=== PATIENT | female | born 1945 | race Caucasian/White ===

== ENCOUNTER 2017-04-10 23:18 | Emergency (ER) | payer MEDICARE, OTHER ==
[~2017-04-10] VITALS: Ht 152.4 cm; Wt 113.4 kg
[~2017-04-10 23:18] MED LIST: ATENOLOL25 MG PO; DEMADEX10 MG PO; PRAVACHOL40 MG PO; SPIRIVA18 MCG INH; ULTRAM50 MG PO; VITAMIN D1000 UNIT PO
== END 2017-04-11 01:10 | disposition home or self-care (01) ==
LOC: ED 23:18
DX: J44.9 Chronic obstructive pulmonary disease, unspecified (principal); I10 Essential (primary) hypertension; F17.210 Nicotine dependence, cigarettes, uncomplicated; Z79.899 Other long term (current) drug therapy
CPT/HCPCS: 82803; 99284

== ENCOUNTER 2022-10-02 09:03 | Inpatient (IN) | payer MEDICARE, OTHER ==
[~2022-10-02] VITALS: Ht 152.4 cm; Wt 99.0 kg
[~2022-10-02 09:03] MED LIST changes: +BUPROPION XL300 MG PO; +HYDROCHLOROTH12.5 MG PO; +LASIX20 MG PO; -PRAVACHOL40 MG PO; +PRAVASTATIN SOD40 MG PO; +PRED S O P OPTH; +SPIRIVA RESPIMAT4 GM INH; +SPIRONOLACTONE25 MG PO; +SYMBICORT 16010.2 GM INH; +VENTOLIN HFA18 GM INH; +ZESTRIL40 MG PO; +ZYLOPRIM100 MG PO
[2022-10-02] MEDS ORDERED: TORSEMIDE5 MG PO (09:36)
[2022-10-02] MEDS ORDERED: JARDIANCE10 MG PO (09:36)
[2022-10-02] MEDS ORDERED: LISINOPRIL20 MG PO (09:36)
--- NOTE | 2022-10-02 15:15 | NUR ---
PT. ARRIVED VIA STRETCHER AND REPORT RECIEVED AND SKIN ASSESSMENT COMPLETED. PT. IS ALERT AND ORIENTED TO ALL. SHE AMBULATED WITH 2PA AND CANE TO BED BUT WAS VERY UNSTEADY. WILL TRY WALKER. INTAKE COMPLETED. DISCUSSED SAFETY, PAIN MANAGEMENT AND POC. MD IN TO SEE PT.
[2022-10-02 15:20] VITALS: BP 122/38
--- NOTE | 2022-10-02 18:05 | NUR ---
VITALS AND I/OS COMPLETED. PT. BROUGHT WARM BLANKETS. DENIES N/V AND PAIN AT THIS TIME.
[2022-10-02 18:16] VITALS: BP 139/48
--- NOTE | 2022-10-02 19:18 | NUR ---
RECEIVED REPORT FROM DAY NURSE. PT IS A/O, RESPIRATIONS EVEN AND REGULAR. SON AT BEDSIDE. DENIES NEEDS/COMPLAINTS ATT.
[2022-10-02 20:00] VITALS: BP 146/54
--- NOTE | 2022-10-02 20:00 | NUR ---
pt is a/o ,respirations even and regular. c/o decreased appetite. denies needs/complaints att. family at bedside.
--- NOTE | 2022-10-03 00:04 | NUR ---
PT IS A/O, RESPIRATIONS EVEN AND REGULAR. STATES SHE IS HAVING RLQ PAIN BUT DENIES NEED FOR PAIN MEDICATION ATT. NEW BAG OF IV FLUIDS HUNG. IV SITE WNL. CALL LIGHT WITHIN REACH.
[2022-10-03 01:40] VITALS: BP 120/51
--- NOTE | 2022-10-03 03:10 | NUR ---
PT C/O NAUSEA. PRN ZOFRAN ADMINISTERED. PT DENIES ANY OTHER NEEDS/COMPLAINTS ATT.
--- NOTE | 2022-10-03 04:01 | NUR ---
PT STATES NAUSEA HAS IMPROVED WITH PRN ZOFRAN. DENIES ANY OTHER NEEDS/COMPLAINTS ATT.
[2022-10-03 05:20] VITALS: BP 127/56
--- NOTE | 2022-10-03 06:30 | CONS ---
[facility] [address], [place] [address] Signed DATE OF CONSULTATION: 10/02/2022 CHIEF COMPLAINT: Periumbilical abdominal pain. HISTORY OF PRESENT ILLNESS: Gabriella is a 77-year-old obese female, who has had an umbilical hernia for 38 years. It came after the of her last child, Luca who happens to be here today. She said the last month it has been getting worse with nausea, anorexia and weight loss. Every time she eats, she seemed to have pain right at the umbilicus. She finally decided to come to the emergency room for evaluation. She had been to her primary care provider in the last couple of weeks and apparently had hematuria. They have been waiting on what sounds like a urine culture. Here in the emergency room, she has an incarcerated umbilical hernia with thin overlying skin and even a scab on the skin. Unfortunately, there are no local signs or symptoms of infection. She said she really has not urinated much or had much bowel movement. She also states she has not been able to eat or drink much. Her white count is a little elevated and her BUN and creatinine are elevated as well. She happens to see Dr. Benson as her soil tester. She cannot recall her baseline creatinine or her baseline GFR. She had a CT scan of the abdomen and pelvis performed and she has multiple small right hepatic lesions that probably needs some additional studies in the future. She has a large fat containing umbilical hernia without any bowel in the hernia and probably some sludge in her gallbladder. Consequently, the ER doctor ordered an ultrasound which confirmed the gallbladder sludge, but the wall is not thickened and the common bile duct is 6.4 mm and there was no sonographic Baer sign. Consequently, I was asked to see her as a general surgeon on-call here in the emergency room. PAST MEDICAL HISTORY: Umbilical hernia for 38 years diet, type 2 diabetes, hypertension, obstructive sleep apnea, hypercholesterolemia, and colonic polyps. PAST SURGICAL HISTORY: Includes at least two colonoscopies. She is quite certain I did a colonoscopy for her a number months ago. She recently had a thyroid biopsy with Dr. Dubon and is awaiting the results. She has upper dentures. SOCIAL HISTORY: She does not smoke or drink. She is retired from various jobs. She has had four children, all born vaginally. She has an apartment here in town and still drives. She prefers the [facility]. Dr. Pamella Jackson is her primary care provider and Dr. Ever Benson is her soil tester. Her son is Luca at [phone]. FAMILY HISTORY: Electronically Signed By: GROVER SANCHEZ MD 10/03/22 0630 PATIENT NAME: GABRIELLA DE LA CRUZ CONSULTATION DATE OF : 49 REPORT #: [id number] PHYSICIAN: GROVER SANCHEZ MD PCP: PAMELLA JACKSON MD REPORT IS CONFIDENTIAL AND NOT TO BE RELEASED WITHOUT AUTHORIZATION [facility] [address], [place] [address] Signed Dad had diabetes and coronary artery disease. Mom had skin cancers. REVIEW OF SYSTEMS: She had 10 systems reviewed and really nothing new to add. Specifically, no metal in her body. ALLERGIES: None. MEDICATIONS: 1. Pravastatin. 2. Bupropion XL. 3. Symbicort. 4. Allopurinol. 5. Spiriva. 6. Jardiance. 7. Lisinopril. 8. Torsemide. PHYSICAL EXAMINATION: VITAL SIGNS: Her blood pressure is 109/56, heart rate is 80, respiratory rate is 15, temperature is 98.3. She is 95% on room air. She is 5 feet tall at 108 kg with a body mass index of 46. GENERAL: Gabriella is a 77-year-old elderly female, lying supine semi-recumbent in her ER bed. Her son, Luca is at the bedside. She does not appear systemically ill or toxic. She seems to answer appropriately and has a pretty good mind for detail. LUNGS: Clear to auscultation bilaterally. HEART: Regular rate and rhythm without murmur. ABDOMEN: Obese, but soft. She has no tenderness in the right upper quadrant. She clearly has a large 12 cm or maybe larger umbilical hernia. Overlying skin is thin and there is a scab in the middle portion. There are no local signs or symptoms of infection. We cannot reduce the hernia today. LABORATORY DATA: Her white blood count is 15, hemoglobin 14, neutrophils 75. Her BUN is 60, creatinine is 2.72, glucose 114. Her urine specific gravity is greater 1.030. Urinalysis showed glucose, her GFR is low at 18. LFTs are negative. Albumin is low at 2.8. Lipase is normal at 38. COVID is pending. RADIOGRAPHIC STUDIES: CT scan of the abdomen and pelvis is reviewed and it showed multiple small right hepatic lesions, but a large fat containing periumbilical hernia but no bowel. Ultrasound confirms sludge in the gallbladder but the common bile duct is 6.4 mm and the gallbladder wall is not thickened. There was no sonographic Baer sign. Electronically Signed By: GROVER SANCHEZ MD 10/03/22 8730 PATIENT NAME: GABRIELLA DE LA CRUZ CONSULTATION DATE OF : 49 REPORT #: [id number] PHYSICIAN: GROVER SANCHEZ MD PCP: PAMELLA JACKSON MD REPORT IS CONFIDENTIAL AND NOT TO BE RELEASED WITHOUT AUTHORIZATION [facility] [address], [place] [address] Signed ASSESSMENT AND PLAN: Gabriella is a 77-year-old obese diabetic female with an incarcerated periumbilical hernia. She said it has been there for 38 years. I am not sure why it is bothering her so much this last month. She is very clear that she does not have any gallbladder symptoms. At this point, she is dehydrated and certainly she has an elevated BUN and creatinine. At this point, we are going to admit her to the hospital for IV hydration and clear liquids and we will see how she does. We will consult her medical service as well. Hopefully, we can help her repair this here in a few days once we get her back to a baseline level of renal function. In the meantime, she has been given Rocephin and Flagyl as well. I also brought a brochure with me today on hernias. I went through it page by page with Gabriella and her son. We have reviewed umbilical hernias along with primary suture repair versus mesh repair. We also reviewed the expected intraop and postop course. They have expressed understanding and agreed with the above plan. Grover Sanchez MD ALB/MODL /[id number] cc: MD Pamella Moncada MD Andrew L Bower, MD Copies: EVER BENSON MD, ANDREW L MD ~ Electronically Signed By: GROVER SANCHEZ MD 10/03/22 0630 PATIENT NAME: GABRIELLA DE LA CRUZ CONSULTATION DATE OF : 49 REPORT #: [id number] PHYSICIAN: GROVER SANCHEZ MD PCP: PAMELLA JACKSON MD REPORT IS CONFIDENTIAL AND NOT TO BE RELEASED WITHOUT AUTHORIZATION
--- NOTE | 2022-10-03 06:48 | NUR ---
medication administration completed. pt is sitting at eob for comfort. pt is a/o, respirations even and regular. family at bedside. call light within reach.
--- NOTE | 2022-10-03 08:00 | NUR ---
REPORT RECEIVED FROM NIGHT RN AND PT CARE RESUMED. PT IS IN THE CHAIR WITH SON PRESENT. DENIES PAIN AND NAUSEA. IV LEAKING AND PAINFUL. NEW IV STARTED BY RAIL MAINTENANCE WORKER. ASSESSMENT COMPLETED AND MEDS ADMIN. CALL LIGHT IN REACH.
--- NOTE | 2022-10-03 08:09 | NUR ---
PT RESTING IN BED. BS TAKEN. PT ASSISTED UP TO CHAIR BY 1 PA W FWW. PT LINEN CHANGED. ICE WATER PROVIDED. AM CARE COMPLETE. LEGS ELEVATED. PT DECLINED WARM BLANKET. NO NEEDS. CALL LIGHT WITHIN REACH
--- NOTE | 2022-10-03 08:10 | NUR ---
Spoke with this pt. Pt states she lives in an apartment on the ground floor. She drives, son assists her. Son does her shopping. Pt uses a cane and and walker with a seat. She uses her walker when she goes out. She also uses a CPAP at night. Pt gets food boxes from [employer] and they help with her utilities. Son grocery shops, pt cooks and cleans. Pt waiting surgery tomorrow.
[2022-10-03 09:05] VITALS: BP 139/43
[2022-10-03] MEDS ORDERED: INDAPAMIDE2.5 MG PO (10:21)
[2022-10-03] MEDS ORDERED: VITAMIN D325 MCG PO (12:59)
[2022-10-03] MEDS ORDERED: SENNA8.6 MG PO (12:59)
--- NOTE | 2022-10-03 13:00 | NUR ---
MED REC COMPLETE
[2022-10-03 13:07] VITALS: BP 107/88
[2022-10-03 16:36] VITALS: BP 129/45
--- NOTE | 2022-10-03 19:21 | NUR ---
RECEIVED REPORT FROM DAY NURSE. PT IS A/O, RESPIRATIONS EVEN AND REGULAR, SITTING UP IN CHAIR. ASSISTED PT BACK TO BED WITH USE OF WALKER. IV FLUIDS AND POTASSIUM RUNNING. CALL LIGHT WITHIN REACH.
[2022-10-03 20:21] VITALS: BP 127/55
--- NOTE | 2022-10-03 20:27 | NUR ---
MEDICATION ADMINISTRATION COMPLETED. PT IS A/O, RESPIRATIONS EVEN AND REGULAR. IV FLUIDS RUNNING. PT DENIES PAIN/NAUSEA ATT. NO INSULIN COVERAGE NEEDED FOR BG 97. GARRISON CATHETER INTACT. CALL LIGHT WITHIN REACH.
[2022-10-04] VITALS (7 sets, daily range): BP systolic 126–139; BP diastolic 48–67
--- NOTE | 2022-10-04 01:56 | NUR ---
call light answered, iv pump alarming. issue resolved. iv fluids infusing as directed. pt assisted with being boosted in bed. no additional needs or concerns. call light in reach.
--- NOTE | 2022-10-04 02:29 | NUR ---
PT IS A/O, RESPIRATIONS EVEN AND REGULAR. ACTIVE BOWEL SOUNDS X4 QUADRANTS. ABDOMEN REMAINS SLIGHTLY TENDER, BUT PT STATES IT HAS IMPROVED GREATLY. IV FLUIDS RUNNING. PT HAS BEEN NPO SINCE MIDNIGHT. CALL LIGHT WITHIN REACH.
--- NOTE | 2022-10-04 02:37 | NUR ---
pt NPO, ACCUCHECK RESULT OF 93. NO ADDITIONAL NEEDS, CALL LIGHT IN REACH. PRIMARY RN CHARLENE UPDATED AND AWARE.
--- NOTE | 2022-10-04 07:10 | NUR ---
REPORT RECEIVED FROM [employer]OUSING [employer]PECTORS NURSE GAYLE. PT TO GO TO THE OR TODAY EAROUND 1000, HAS BEEN NPO SINCE MIDNIGHT.
--- NOTE | 2022-10-04 08:33 | NUR ---
PT WIPEDOWN FOR SURGERY, SHAMPOO, COMPLETE BED CHANGE, NEW GOWN, SCD'S PLACED, AM CARES PERFORMED. PT WAS ABLE TO SIT/STAND AT BEDSIDE USE OF FWW. NO HANDS ON. PT LAYING SEMIFOWLER IN BED, RN IN ROOM. CALL LIGHT IN REACH.
--- NOTE | 2022-10-04 09:45 | NUR ---
PTS DENTURES AND GLASSES REMOVED, AWAITING SURGERY CREW. HER MAG INFUSION AND ABX ARE ALL COMPLETE, STOPPED HER MAINTENANCE FLUID AT THIS TIME AND SALINE LOCKED IV TO RIGHT HAND. PT STILL HAS THE IVF WITH 30K INFUSING TO HER LEFT HAND. SHE DENIES ANY NEEDS AT THIS TIME.
--- NOTE | 2022-10-04 10:00 | NUR ---
OR CREW CALLED AND REPORT THAT PT'S CASE IS DELAYED AND SHE WILL PROBABLY GO AROUND 1100. PT MADE AWARE.
--- NOTE | 2022-10-04 11:01 | NUR ---
CEDRIC SHEETS FROM OR HERE TAKING PT TO OR. LR WAS HUNG ON STRAIGHT TUBING WITH EXTENSION SET.
--- NOTE | 2022-10-04 12:00 | NUR ---
PT CONITNUES TO BE IN THE OR AT THIS TIME
--- NOTE | 2022-10-04 12:27 | NUR ---
PATIENT IS IN THE OR. CASE MANAGEMENT WILL CHECK BACK LATER.
--- NOTE | 2022-10-04 13:05 | NUR ---
PT CONTINUES TO BE IN THE OR AT THIS TIME.
--- NOTE | 2022-10-04 13:55 | NUR ---
10/04/22 1355 Chasidy Ariza 1347 PATIENT AWAKE OFF/ON. SHAKES HEAD NO TO PAIN. RESP EVEN AND UNLABORED, NC AT 4 LITERS. SHAKES HEAD NO TO NAUSEA.
--- NOTE | 2022-10-04 14:01 | NUR ---
PT REMAINS IN THE OR AT THIS TIME.
--- NOTE | 2022-10-04 14:24 | NUR ---
PT RETURNED TO ROOM 107 BY PACU NURSE NORMAN CRISOSTOMO. PT HAS HAD A "COMPLEX" HERNIA SURGERY BUT NO MESH, MIDLINE SURGICAL SITE WITH SEVERAL LAYERS OF SUTURES, COVERED WITH DRY INTACT DRESSING. DR SANCHEZ IN ROOM WELL.SAYS MELI MAY COME OUT, ALSO SWITCHING HER DESENX POWDER TO A CREAM.
--- NOTE | 2022-10-04 15:14 | NUR ---
PATIENT RETURN FROM THE OR AND IS SLEEPING AT THIS TIME. CM WILL FOLLOW-UP WHEN PATIENT IS AWAKE.
--- NOTE | 2022-10-04 15:34 | NUR ---
SECOND SET OF HOURLY POST VITALS OBTAINED, PT IS STILL SOMEWHAT DROWSY POST OP. SON SCOTT HAS ARRIVED AND HE HAS BEEN UPDATED. REMAINS ON CPOX AND O2 VIA NC TO KEEP SATS ABOVE 92%. GARRISON REMAINS IN PLACE FOR NOW, MAINTENANCE FLUIDS CONTINUE.
--- NOTE | 2022-10-04 16:38 | NUR ---
IN ROOM OBTAINING 3RD SET OF HOURLY POST OP VITALS, PT IS MORE AWAKE. O2 TURNED OFF, PT ON ROOM AIR. PT GIVEN ORAL POTASSIUM WELL HER SCHEDULED CHOLESTEROL MED. SWALLOWED THE MEDS WITHOUT DIFFICULTY, TOLERATING PO FLUIDS.
--- NOTE | 2022-10-04 17:23 | NUR ---
PT STATED HER ABDOMINAL PAIN IS ABOUT A "4" PT STATES SHE DOES NOT WANT ANY REALLY STRONG PAIN MEDS F SHE DOESN'T NEED IT. OFFERED TYLENOL AND PT OK WITH THIS. PT GIVEN 650MG TYLENOL BY MOUTH. SWALLOWING FLUIDS AND PILLS WITHOUT DIFFICULTY.
--- NOTE | 2022-10-04 18:27 | NUR ---
CHECKED IN ON PATIENT. SHE IS CURRENTLY RESTING TOWARD HER RIGHT SIDE STATES THAT IS "MOST COMFORABLE" ASKED HER ABOUT HER PAIN SHE SAYS IT IS "GOOD" DENIES NAUSEA. PT REPORTED TO HAVE EATEN ABOUT HALF OF HER MEAL AT DINNER. SON SCOTT IN ROOM.
--- NOTE | 2022-10-04 18:39 | NUR ---
PT REMAINED NPO SINCE MIDNIGHT AND WENT TO THE OR AROUND 1100 THIS MORNING. THE CASE PER PACU NURSE RETURNING PT TOOK ABOUT AN HOUR LONGER THAN EXPECED PT'S HERNIA REPAIR WAS MORE COMPLEX. PT ARRIVED BACK TO ROOM AT 1425, WAS ON O2 FOR A FEW HOURS POST PROCEDURE WHILE MEDS MORE OFF AND IS NOW BACK ON ROOM AIR. PT HAS A MIDLINE ICISION THAT IS CIVER WITH DRY INTACT DRESSING, PT HAS "LAYERS" OF SUTURING UNDERNEATH, NO DRAINAGE NOTED. PER DR SANCHEZ PT'S GARRISON CAN BE REMOVED WHEN PATIENT MORE AWAKE AND CAN GET UP TO URINATE. PT HAS BEEN DRINKING FLUIDS WELL, ATE ABOUT 50% OF DINNER, DENIES NAUSEA, AND PAIN IMPROVED WITH PO TYLENOL. MAINTENANCE FLUIDS CONTINUE.
--- NOTE | 2022-10-04 19:19 | NUR ---
RECEIVED REPORT FROM DAY NURSE. PT IS A/O, RESPIRATIONS EVEN AND REGULAR. MIDLINE DRESSING CDI. PANNUS EXCORIATED. PT REQUESTING GARRISON TO BE REMOVED. CALL LIGHT WITHIN REACH.
--- NOTE | 2022-10-04 20:07 | NUR ---
PT ASSESSMENT AND MEDICATION ADMINISTRATION COMPLETED. GARRISON CATHETER REMOVED. PT TOLERATED WELL. CALL LIGHT WITHIN REACH.
--- NOTE | 2022-10-04 20:58 | NUR ---
MEDICATION ADMINISTRATION COMPLETED. PT AMUBLATED WITH WALKER TO BATHROOM AND WAS ABLE TO VOID 150ML POST GARRISON REMOVAL. ABDOMINAL DRESSING CDI. PT DENIES NEED FOR PAIN MEDICATION AND THIS TIME. REPORTS SHE HAS BEEN PASSING GAS BUT HAS NOT HAD A BM. IV FLUIDS RUNNING. CALL LIGHT WITHIN REACH.
--- NOTE | 2022-10-04 22:09 | NUR ---
PT IS A/O, RESPIRATIONS EVEN AND REGULAR. SCD'S IN PLACE. IV FLUIDS RUNNING.
--- NOTE | 2022-10-04 23:24 | NUR ---
PT A/O, DENIES NEED FOR PAIN MEDICATION ATT. REQUESTING ICE. DENIES ANY OTHER NEEDS/COMPLAINTS ATT. CALL LIGHT WITHIN REACH.
[2022-10-05 01:38] VITALS: BP 111/76
[2022-10-05 05:44] VITALS: BP 129/53
--- NOTE | 2022-10-05 05:54 | NUR ---
VS AND I/O'S COMPLETED. PT AMBULATED WELL TO RESTROOM. SMALL AMOUNT OF BLOOD NOTED TO URINE. PT STATES THIS WAS GOING ON PRIOR TO HOSPITAL ADMISSION AND IS NOTED IN ED MD NOTES. PT IS SITTING UP IN CHAIR. CPOX ON. IV FLUIDS RUNNING. CALL LIGHT WITHIN REACH.
--- NOTE | 2022-10-05 07:30 | NUR ---
patient up in chair prior to shift change. am care already completed. acu check completed. call light within reach.
--- NOTE | 2022-10-05 07:36 | OR ---
[facility] [address] [place], [place] [address] Signed DATE OF OPERATION: 10/04/2022 SURGEON: Grover Sanchez MD PREOPERATIVE DIAGNOSIS: Symptomatic incarcerated umbilical hernia (2 cm). POSTOPERATIVE DIAGNOSIS: Symptomatic incarcerated umbilical hernia (2 cm). PROCEDURE: Primary umbilical herniorrhaphy (prolonged and difficult at 1-1/2 hours with two nurses). ESTIMATED BLOOD LOSS: None. FINDINGS: Gabriella had a 2 cm fascial defect that had to be extended and additional 2 cm to reduce the large ball of incarcerated omentum. That omentum was at least the size of a softball. Every bit of 15 cm in diameter. It had acute on chronic inflammatory changes and was adherent to itself and a ball. It all had to be taken down to the omentum could lie flat in the abdomen. The overlying skin was quite thin and in fact at one point it broke open and she had a scab. Consequently, we had to resect all that additional skin and closed the wound in layers. It took an additional nurse to scrub in and accomplish the case. The entire procedure took 1-1/2 hours. That is almost an hour or long with the most umbilical hernias. Consequently, this was prolonged and difficult. INDICATIONS: Gabriella is a 77-year-old obese diabetic female, who developed an umbilical hernia after the of last son 38 years ago. For some reason, it started to bother her the last month or so. She has been having pain after she eats and therefore had cut her eating back and had been losing weight. She was nauseated and having periumbilical pain. She ended up in the emergency room finally for evaluation. We could clearly not reduce this hernia. Her white count was elevated. She was dehydrated with acute on chronic renal failure. Her BUN is up at 16 and the creatinine is up at 2.72. Her urine specific gravity is greater than 1.030. She had lots of glucose in the urine and her GFR was down to 18. Albumin was low at 2.8. I have been asked to admit her as a general surgeon on-call. We did have our hospitalist service see her as well. She has been on Rocephin and Flagyl during this time. Her white count is down to 9.8. With hydration, her hemoglobin is down to 11.9 with a mean cell volume normal at 91. Her BUN dropped Electronically Signed By: GROVER SANCHEZ MD 10/05/22 0736 PATIENT NAME: GABRIELLA DE LA CRUZ OPERATIVE REPORT DATE OF : 49 REPORT #: [id number] PHYSICIAN: GROVER SANCHEZ MD PCP: YEMI WHALEN MD REPORT IS CONFIDENTIAL AND NOT TO BE RELEASED WITHOUT AUTHORIZATION [facility] [address] [place], [place] [address] Signed down to 21. Her creatinine is improved all the way down to 1.19. Her glomerular filtration rate is improved up to 48. She looks and feels much better. We decided today we would bring her down the operating room and repair this acute on chronic umbilical hernia. Interestingly, once we got her hydrated, she was able to tolerate some clear liquids and then some full liquids as well. I had given Gabriella and her son a booklet on hernias. We reviewed the booklet together. We reviewed umbilical hernias in detail. They understand the difference between a primary suture repair and a mesh repair. We had reviewed the expected intraop and postop course. There is risk of surgery including, but not limited to bleeding, infection, scarring, change in contour of the skin, infection of mesh if utilized as well as recurrent hernias and chronic pain. They had expressed understanding and wished to proceed. PROCEDURE NOTE: I met with Gabriella in our preop area once again. After answering her questions, we took her into the operating room. She was placed in the supine position under general endotracheal tube anesthesia. She already had a Melendez catheter in place. She was already on Rocephin and Flagyl. She also has Lovenox ordered daily. We did notice she has rather significant fungal infection in her groins. We cleaned the nystatin powder out with a warm moist cloth. She was then prepped and draped in the usual sterile fashion. Even after she was pharmacologically paralyzed, we could not reduce the large amount of incarcerated omentum. We utilized a vertical incision and went down and around the herniated omentum. It took a while because of all the acute and chronic inflammatory changes and adhesions. We had to extend the fascial defect inferiorly about 2 cm to a total of about 4 cm to get all the omentum reduced. We had taken additional time with the help of an additional nurse to lyse adhesions so the omentum could lay flat. There were a couple of small rents in the omentum that we closed with running 2-0 PDS suture. Once we had the omentum reduced, we realized the hernia sac was up against her very thin skin. We went ahead and excised the entire extent of the hernia sac with the help of the cautery. We then closed the fascial defect vertically with interrupted #1 [id number] and simple Prolene sutures. We brought the deep subcutaneous tissues together with interrupted 3-0 Monocryl sutures. We then excised a large of elliptical skin with the help of the 20 blade knife. This was passed off the field. Again with the help of the nurse, we brought the together and we brought the dermis with interrupted 3-0 subcuticular Monocryl sutures. We then closed the skin edges with a running 5-0 fast absorbing plain gut suture. We had injected local anesthetic in the abdominal wall before closure. The wound had been irrigated and suctioned out until clear. Dry gauze and tape were applied. We left her Melendez catheter in place. She was awakened from her anesthesia, extubated in the OR, and taken to the recovery room in stable condition. Electronically Signed By: GROVER SANCHEZ MD 10/05/22 0736 PATIENT NAME: GABRIELLA DE LA CRUZ OPERATIVE REPORT DATE OF : 49 REPORT #: [id number] PHYSICIAN: GROVER SANCHEZ MD PCP: YEMI WHALEN MD REPORT IS CONFIDENTIAL AND NOT TO BE RELEASED WITHOUT AUTHORIZATION [address] [address] Signed MD BROOKE Mckinney/RADHAL /[id number] cc: MD Grover Moncada MD Gwen Libby, MD Copies: NATALIYA BONILLA MD, ANDREW L MD ~ Electronically Signed By: GROVER SANCHEZ MD 10/05/22 0736 PATIENT NAME: GABRIELLA DE LA CRUZ OPERATIVE REPORT DATE OF : 49 REPORT #: [id number] PHYSICIAN: GROVER SANCHEZ MD PCP: YEMI WHALEN MD REPORT IS CONFIDENTIAL AND NOT TO BE RELEASED WITHOUT AUTHORIZATION
--- NOTE | 2022-10-05 07:43 | NUR ---
DR. SANCHEZ IN ROOM WITH PT. PT UP IN CHAIR. AWAKE AND ALERT
[2022-10-05 08:13] VITALS: BP 127/51
--- NOTE | 2022-10-05 21:48 | EKG ---
[facility] [address] [facility] [place] [address] Signed Normal sinus rhythm Right bundle branch block Inferior infarct , age undetermined Abnormal ECG When compared with ECG of 23-MAY-2021 16:30, Inferior infarct is now present Confirmed by Devi Berg MD () on 10/05/2022 9:48:30 PM Electronically Signed By: DEVI BERG MD 10/05/22 2148 PATIENT NAME: BOWEN DE LA CRUZ Electrocardiogram DATE OF : 49 PHYSICIAN: DEVI BERG MD REPORT #: [id number] REPORT IS CONFIDENTIAL AND NOT TO BE RELEASED WITHOUT AUTHORIZATION
--- NOTE | 2022-10-07 07:19 | DS ---
[facility] [address], [place] [address] Signed ADMISSION DATE: 10/02/2022 DISCHARGE DATE: 10/05/2022 FINAL DIAGNOSES: 1. Symptomatic incarcerated umbilical hernia. 2. Diabetes. 3. Psomq-ar-reskedf renal failure. 4. Dehydration. PROCEDURES: 1. Primary repair of incarcerated umbilical hernia. 2. CT scan of the abdomen and pelvis with multiple small right hepatic lesions. 3. Ultrasound with gallbladder sludge. HISTORY OF PRESENT ILLNESS: Gabriella is a 77-year-old, obese, diabetic female, who has had umbilical hernia for 38 years since her son was born. She has had trouble last month of periumbilical pain, nausea, anorexia, weight loss associated with eating with that hernia. She had dehydrated and finally came to the emergency room. She had ljapq-jb-dpdjwss renal failure. She had multiple small right hepatic lesions on the CT scan, which are most likely unremarkable, but they should be followed up by her primary care provider. The ER doctor also ordered an ultrasound, which showed some gallbladder sludge, but a negative sonographic Baer sign. She gave us no gallbladder symptoms whatsoever. She is very specific about the pain at the umbilicus. She was admitted as above to my service. We also asked our hospitalist service to see her as well. She was on Rocephin and Flagyl. Her BUN returned to normal, her creatinine was almost normal at discharge. She is on the edge of anemia. She looked and felt much better after IV fluids. She was able to tolerate some clear liquids and some full liquids as well. We took her to the operating room on 10/04/2022 and underwent a prolonged and difficult primary umbilical herniorrhaphy. We closed the fascial defect vertically with interrupted Prolene sutures. We excised excess thin skin and brought her adipose tissue and skin back together over the repair. She did well both intraop and postop. This morning, she looks and feels much better. She is hoping to go home. DISCHARGE PLANS AND MEDICATIONS: Gabriella is going to be discharged to home with no new prescriptions. She has been encouraged to buy some nystatin cream and apply it in her groin and perineum a couple of times a day for about a week until her fungal infection is resolved. She has been declining narcotics and said Tylenol is perfectly fine. She knows not to use NSAIDs because of her diabetes and her renal failure. She is going to resume all her chronic medications, which include her pravastatin, bupropion XL, Symbicort, allopurinol, Electronically Signed By: GROVER SANCHEZ MD 10/07/22 0719 PATIENT NAME: GABRIELLA DE LA CRUZ DISCHARGE SUMMARY DATE OF : 49 REPORT #: [id number] PHYSICIAN: GROVER SANCHEZ MD PCP: YEMI WHALEN MD REPORT IS CONFIDENTIAL AND NOT TO BE RELEASED WITHOUT AUTHORIZATION [address] [address] Signed Spiriva, Jardiance, lisinopril, and torsemide. She uses a cane for short distances and her four-wheeled walker for longer distances. She is welcome to do that. We could see her incision is healing well. She can shower and bathe as usual directly over the incision. She is not to do any heavy pushing, pulling, or lifting over about 20 pounds, which she does not do at her baseline anyways. We are going to have her back in the office in 7 to 10 days for followup. She has expressed understanding and agrees with the above plan. Grover Sanchez MD [facility] /[id number] cc: Patient Chart MD Ever Gregg MD Andrew L Bower, MD Copies: EVER BONILLA MD, ANDREW L MD ~ Electronically Signed By: GROVER SANCHEZ MD 10/07/22 0719 PATIENT NAME: GABRIELLA DE LA CRUZ DISCHARGE SUMMARY DATE OF : 49 REPORT #: [id number] PHYSICIAN: GROVER SANCHEZ MD PCP: YEMI WHALEN MD REPORT IS CONFIDENTIAL AND NOT TO BE RELEASED WITHOUT AUTHORIZATION
== END 2022-10-05 08:55 | disposition home or self-care (01) | DRG 336 ==
LOC: ED 09:03 → MS 13:33
PROVIDERS: ADMIT Colon & Rectal Surgery; ATTEND Colon & Rectal Surgery
PROC: 0T9B70Z Drainage of Bladder with Drainage Device, Via Natural or Artificial Opening (ICD-10-PCS; 2022-10-02)
PROC: 0DNU0ZZ Release Omentum, Open Approach (ICD-10-PCS; 2022-10-02)
PROC: 0DQU0ZZ Repair Omentum, Open Approach (ICD-10-PCS; 2022-10-02)
PROC: 0WQF0ZZ Repair Abdominal Wall, Open Approach (ICD-10-PCS; principal; 2022-10-04 10:00)
DX: K42.0 Umbilical hernia with obstruction, without gangrene (principal); N17.9 Acute kidney failure, unspecified; Z68.42 Body mass index [BMI] 45.0-49.9, adult; Z20.822 Contact with and (suspected) exposure to COVID-19; Z66 Do not resuscitate; I12.9 Hypertensive chronic kidney disease with stage 1 through stage 4 chronic kidney disease, or unspecified chronic kidney disease; E11.22 Type 2 diabetes mellitus with diabetic chronic kidney disease; E78.00 Pure hypercholesterolemia, unspecified; N18.9 Chronic kidney disease, unspecified; E83.52 Hypercalcemia; E66.9 Obesity, unspecified; E86.0 Dehydration; E87.6 Hypokalemia; E83.42 Hypomagnesemia; E83.39 Other disorders of phosphorus metabolism; K43.9 Ventral hernia without obstruction or gangrene; J44.9 Chronic obstructive pulmonary disease, unspecified; G47.33 Obstructive sleep apnea (adult) (pediatric); K63.5 Polyp of colon; F17.210 Nicotine dependence, cigarettes, uncomplicated; Z86.010 Personal history of colon polyps; Z98.890 Other specified postprocedural states; Z79.899 Other long term (current) drug therapy
CPT/HCPCS: 36415; 74176; 76705; 80048; 80053; 81001; 83690; 83735; 83970; 84100; 84134; 85025; 93005; 93010; A9270; C9113; C9803; J0131; J0696; J1100; J1650; J1815; J1885; J2001; J2405; J2704; J3010; J3475; J3480; J3490; J7030; J7060; U0003

== ENCOUNTER 2024-08-06 16:22 | Emergency (ER) | payer MEDICARE, OTHER ==
[~2024-08-06] VITALS: Ht 152.4 cm; Wt 53.5 kg
[~2024-08-06 16:22] MED LIST changes: +ERYTHROMYCIN1 GM OP; +INDAPAMIDE2.5 MG PO; +JARDIANCE10 MG PO; +LISINOPRIL20 MG PO; +MIRALAX119 GM PO; +OMEPRAZOLE40 MG PO; +ONDANSETRON ODT4 MG PO; +ONDANSETRON ODT8 MG PO; +SENNA8.6 MG PO; +TORSEMIDE5 MG PO; +VITAMIN D325 MCG PO
[2024-08-06 17:52] LABS: BASOPHILS 0.2 % (0-2); HEMATOCRIT 36.7 % (35.0-50.0); HEMOGLOBIN 12.3 g/dL (12.0-18.0); LYMPHOCYTES 10.5 % (24-44); MCH 29.5 (27-36); MCHC 33.6 g/dl (30-36); MCV 87.7 fl (81-99); MONOCYTES 7.1 % (0-12); NEUTROPHILS 82.2 % (39-80); PLATELET COUNT 279 K/uL (140-440); RBC 4.19 M/ul (4.3-5.7); RDW 14.5 (10.5-15.0)
[2024-08-06] MEDS ORDERED: MORPHINE SULFATE 4 MG/ML VIAL IV ONE (18:00)
[2024-08-06 18:07] LABS: ALBUMIN 2.6 g/dL (3.4-5.0); ALBUMIN/GLOBULIN RATIO 0.57 (1.1-2.4); ANION GAP 8.2 (7-21); BILIRUBIN, TOTAL 0.5 mg/dL (0.2-1.0); BUN/CREATININE RATIO 16.81 (6.0-28.6); CREATININE, SERUM 1.13 mg/dL (0.55-1.02); POTASSIUM 3.2 mmol/L (3.5-5.1); PROTEIN, TOTAL 7.2 g/dL (6.4-8.2)
[2024-08-06] MEDS ORDERED: SODIUM CHLORIDE 0.9% 1,000 ML IV PRN (18:45)
[2024-08-06] MEDS ORDERED: OXYCODONE/ACETAMINOPHEN 1 TAB HOME.PACK PO ONE (21:15)
[2024-08-06 21:28] VITALS: BP 164/64
== END 2024-08-06 21:28 | disposition home or self-care (01) ==
LOC: ED 16:22
PROVIDERS: Emergency Medicine
DX: R10.9 Unspecified abdominal pain (principal); G89.29 Other chronic pain; E11.9 Type 2 diabetes mellitus without complications; F17.200 Nicotine dependence, unspecified, uncomplicated; Z79.899 Other long term (current) drug therapy
CPT/HCPCS: 36415; 74177; 80053; 83690; 85025; 99284-25; J2270; J7030; Q9967

== ENCOUNTER 2024-10-20 00:55 | Inpatient (IN) | payer MEDICARE, OTHER ==
[~2024-10-20] VITALS: Ht 172.7 cm; Wt 52.3 kg
[2024-10-20] MEDS ORDERED: CEFTRIAXONE SODIUM 2 GM in SODIUM CHLORIDE 0.9% 100 ML IV ONE (01:00)
[2024-10-20] MEDS ORDERED: LACTATED RINGER'S 1,000 ML IV ONE (01:00)
[2024-10-20] MEDS ORDERED: KETOROLAC TROMETHAMINE 15 MG/ML VIAL IV ONE (01:05)
[2024-10-20] MEDS ORDERED: KETOROLAC TROMETHAMINE 15 MG/ML VIAL ONE (01:11)
[2024-10-20] MEDS ORDERED: ondansetron HCL 4 MG/2 ML VIAL IV ONE (01:15)
[2024-10-20] MEDS ORDERED: ondansetron HCL 4 MG/2 ML VIAL ONE (01:18)
[2024-10-20] MEDS ORDERED: metroNIDAZOLE/SODIUM CHLORIDE 500 MG/100 ML PIGGYBACK IV ONE (03:05)
[2024-10-20] MEDS ORDERED: metroNIDAZOLE/SODIUM CHLORIDE 100 ML IV ONE (03:07)
[2024-10-20] MEDS ORDERED: CIPROFLOXACIN/DEXTROSE 400 MG/200 ML PIGGYBACK IV ONE (04:00)
[2024-10-20] MEDS ORDERED: ondansetron HCL 4 MG/2 ML VIAL IV PRN (04:00)
[2024-10-20] MEDS ORDERED: MORPHINE SULFATE 4 MG/ML VIAL IV PRN ×2 (04:00→11:45)
[2024-10-20] MEDS ORDERED: ACETAMINOPHEN 325 MG TAB PO PRN (04:00)
[2024-10-20 04:11] LABS: ALBUMIN 2.6 g/dL (3.4-5.0); ALBUMIN/GLOBULIN RATIO 0.58 (1.1-2.4); ANION GAP 8.6 (7-21); BILIRUBIN, TOTAL 0.7 mg/dL (0.2-1.0); BUN/CREATININE RATIO 10.52 (6.0-28.6); CALCIUM 9.9 mg/dL (8.5-10.1); CREATININE, SERUM 1.14 mg/dL (0.55-1.02); POTASSIUM 3.6 mmol/L (3.5-5.1); PROTEIN, TOTAL 7.1 g/dL (6.4-8.2)
[2024-10-20 04:12] LABS: HEMATOCRIT 38.8 % (34.1-44.9); HEMOGLOBIN 12.6 g/dL (11.2-15.7); MCHC 32.5 g/dL (32.2-35.5); MCV 89.2 fL (79.4-94.8); PLATELET COUNT 283 K/uL (182-369); RBC 4.35 M/uL (3.93-5.22)
[2024-10-20 04:23] LABS: LYMPHOCYTES, MANUAL DIFF 8; MONOCYTES, MANUAL DIFF 8; NEUTROPHILS, MANUAL DIFF 84
[2024-10-20 04:26] LABS: LACTIC ACID, BLOOD 2.1 mmol/L (0.4-2.0)
[2024-10-20 04:27] LABS: INR 1.11 (0.80-1.30); PARTIAL THROMBOPLASTIN TIME 28.2 Sec (22.9-41.3); PROTIME 13.8 Sec (11.2-14.2)
[2024-10-20 04:29] LABS: LACTIC ACID, BLOOD 1.6 mmol/L (0.4-2.0)
[2024-10-20 04:34] LABS: BILIRUBIN, URINE NEGATIVE (negative); BLOOD/HGB, URINE TRACE-LYSED (Negative); KETONE, URINE TRACE (Negative); LEUK ESTERASE, URINE NEGATIVE (negative); NITRITE, URINE NEGATIVE (negative); PH, URINE 5.5 (5-7)
[2024-10-20 04:35] LABS: BACTERIA, URINE 1+ /hpf (negative); CASTS, URINE NONE SEEN \\lpf; CRYSTALS, URINE NONE SEEN (0-1+); EPITHELIAL CELLS, URINE SQUAMOUS 2+ /lpf (0-1+); RED BLOOD CELLS, URINE 0-1 /hpf (0-5); REFLEX CULTURE, URINE No (No)
[2024-10-20 04:37] VITALS: BP 108/65
[2024-10-20] MEDS ORDERED: metroNIDAZOLE/SODIUM CHLORIDE 500 MG/100 ML PIGGYBACK IV SCH ×2 (06:00→14:00)
--- NOTE | 2024-10-20 06:22 | NUR ---
PT TO FLOOR WITH CAMPGROUND MANAGER VIA STRETCHER AT APPROX 0420. PT ALERT AND ORIENTED. PT ABLE TO TRANSFER SELF FROM STRETCHER TO BSC THEN TO BED. GAIT STEADY. VS AND WEIGHT OBTAINED. ADMISSION COMPLETE. PT REPORTS RIGHT SIDE PAIN 8/10. PRN FOR PAIN ADMIN PER EMAR. WARM COMPRESS PROVIDED. PT DENIES NAUSEA AT THIS TIME. SIPS OF WATER PROVIDED. BOWEL TONES ACTIVE. ABD SOFT. PT ORIENTED TO ROOM AND NURSE CALL LIGHT. PT DENIES QUESTIONS OR CONCERNS. CALL LIGHT IN REACH.
--- NOTE | 2024-10-20 06:25 | NUR ---
PT AWAKE IN BED ON CELL PHONE. PT REPORTS RIGHT SIDE PAIN IMPROVED. NO NEEDS AT THIS TIME. BED ALARM IN PLACE. CALL LIGHT IN REACH.
--- NOTE | 2024-10-20 07:28 | NUR ---
REPORT RECEIVED FROM ANDRESSA HENDERSON. PATIENT AWAKE AND ALERT IN BED, REQUESTING TO USE THE RESTROOM. PATIENT AMBULATES WITH SBA AND 4FWW TO RESTROOM. PATIENT HAS A STEADY GAIT. PATIENT EDUCATED ON USING PULL CORD WHEN SHE'S FINISHED, VERBALIZES UNDERSTANDING.
--- NOTE | 2024-10-20 08:01 | NUR ---
THIS COATER HAND AND COATER HANDShola RAMSAY ASSISTED PATIENT TO CHAIR WITH CALL LIGHT IN REACH. GOT A WARM BLANKET. NO FUTHER NEEDS AT THIS TIME.
[2024-10-20] MEDS ORDERED: HYDROCHLOROTH12.5 MG PO (08:30)
[2024-10-20] MEDS ORDERED: KETOCONAZOLE15 GM TOP (08:30)
[2024-10-20] MEDS ORDERED: ALLOPURINOL100 MG PO (08:30)
[2024-10-20] MEDS ORDERED: FARXIGA5 MG PO (08:30)
[2024-10-20] MEDS ORDERED: PRAVASTATIN SOD40 MG PO (08:31)
[2024-10-20] MEDS ORDERED: LISINOPRIL20 MG PO (08:31)
--- NOTE | 2024-10-20 08:40 | NUR ---
PATIENT IN BED AT THIS TIME. THIS PRACTICE SUPPORT SPECIALIST ASSISTED PATIENT TO BATHROOM AND THEN BACK TO BED. CALL LIGHT WITHIN REACH, PATIENT COMPLAINING OF STOMACH PAIN, ANDRESSA MERAZ NOTIFIED.
[2024-10-20] MEDS ORDERED: CIPROFLOXACIN/DEXTROSE 400 MG/200 ML PIGGYBACK IV SCH ×2 (09:00→21:00)
[2024-10-20] MEDS ORDERED: MICONAZOLE NITRATE 1 EA BTL TOP SCH (09:34)
[2024-10-20 09:44] VITALS: BP 145/54
--- NOTE | 2024-10-20 09:45 | NUR ---
ASSESSMENT COMPLETE. XIANG SOBIA REPORTS TO THIS RN THAT PATIENT IS COMPLAINING OF NAUSEA AND 10/10 ABDOMINAL PAIN. PATIENT IS ON HER RIGHT SIDE IN BED IN THE POSITION WHEN THIS RN ENTERS. SHE HAS A HEAT PACK ON HER ABDOMEN AND IS WRITHING IN BED AND GROANING. PATIENT ONLY ABLE TO ANSWER QUESTIONS IN YES OR NO AND IS SQUEEZING HER EYES SHUT TIGHTLY. PRN PAIN MEDICATION ADMINISTERED. PATIENT BEGINS TO RELAX AFTER APPROXIMATELY 10 MINUTES AND IS ABLE TO SPEAK TO THIS RN AND MELIDA DE LA CRUZ. PATIENT REQUESTS USING THE RESTROOM. BSC PROVIDED, THIS RN AND MELIDA DE LA CRUZ REMAIN WITH PATIENT WHILE PATIENT UTILIZES. PATIENT IS UNABLE TO VOID OR HAVE A BOWEL MOVEMENT, RETURNS TO BED AND BEGINS TO RELAX MORE. PATIENT REPORTS HER PAIN IS NOW A 5/10 AND TOLERABLE. BOWEL TONES ARE ACTIVE THROUGHOUT, PATIENT REPORTS TENDERNESS WITH PALPATION TO RUQ AND RLQ. PATIENT WAS PREVIOUSLY ADMINISTERED NAUSEA MEDICATION, NOW REPORTING DECREASED NAUSEA BUT HAS EMESIS BAG AT HER SIDE. PATIENT HAS NO REQUESTS AT THIS TIME, CALL LIGHT AND PERSONAL BELONGINGS ARE IN REACH.
--- NOTE | 2024-10-20 09:47 | NUR ---
PATIENT IN BED AT THIS TIME. PATIENT ACCESS REGISTRAR CHARTED VITALS AND I&O'S. CALL LIGHT WITHIN REACH, NO FURTHER NEEDS AT THIS TIME.
--- NOTE | 2024-10-20 09:57 | NUR ---
VISITED DURING SPIRITUAL CARE ROUNDS. PT DROWSY BUT WELCOMING OF VISIT. STATED NO IMMEDIATE NEEDS. LUNCHROOM OPERATOR PROVIDED SUPPORTIVE PRESENCE, HOSPITALITY, PRAYER, FACILITATED INTERACTION WITH THERAPY ANIMAL. PT EXPRESSED GRATITUDE, HOPE.
--- NOTE | 2024-10-20 10:19 | NUR ---
PATIENT CONTINUES TO REPORT RIGHT SIDED ABDOMINAL PAIN, CURRENTLY RATED 6/10. SECOND DOSE OF PRN PAIN MEDICATION ADMINISTERED TO TITRATE MEDICATION TO MAXIMUM DOSE ORDERED. PATIENT IS IN BED HOLDING A HEAT PACK TO HER STOMACH, EYES TIGHTLY CLOSED AND TURNING HER HEAD BACK AND FORTH ON THE PILLOW. PATIENT ABLE TO RESPOND TO QUESTIONS IN 2-3 WORD ANSWERS. MELIDA DE LA CRUZ SWAPS HEAT PACK FOR ICE PACK AND ALSO PROVIDES WARM BLANKETS PATIENT IS NOW REPORTING SHE FEELS COLD. NO REQUESTS AT THIS TIME, PATIENT REMAINS RESTING IN BED, CALL LIGHT AND PERSONAL BELONGINGS IN REACH.
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
[2024-10-20 10:39] VITALS: BP 145/54
--- NOTE | 2024-10-20 11:10 | NUR ---
IN TO ASSESS AND VISIT PATIENT. ALL QUESTIONS ANSWERED. PATIENT CURRENTLY SITTING ON BSC, REPORTS SHE FEELS THOUGH SHE NEEDS TO GO TO THE BATHROOM BUT IS UNSURE IF SHE CAN. PRIVACY PROVIDED, CALL LIGHT AND WIPES IN REACH. PATIENT STATES SHE WILL CALL FOR ASSISTANCE.
[2024-10-20] MEDS ORDERED: PHARMACY RENAL DOSE ADJUSTMENT 1 DOSE MISC PO SCH (12:00)
--- NOTE | 2024-10-20 12:12 | NUR ---
PATIENT IN BED AT THIS TIME. TELEMARKETING FUNDRAISER CHARTED HOURLY ROUNDS. CALL LIGHT WITHIN REACH, NO FURTHER NEEDS AT THIS TIME.
[2024-10-20] MEDS ORDERED: HYDROmorphone HCL 1 MG/ML SYR IV PRN (12:15)
--- NOTE | 2024-10-20 12:35 | NUR ---
PATIENT CONTINUES REPORTING RIGHT SIDED ABDOMINAL PAIN SHE RATES 6/10. PRN PAIN MEDICATION ADMINISTERED FOR THIS AND PROPHYLACTICALLY FOR IMAGING. PATIENT RESTING ON RIGHT SIDE IN BED WHEN THIS RN FIRST ENTERS, PATIENT RESTING MORE QUIETLY AFTER MEDICATION ADMINISTRATION. SMILES WHEN THIS RN ASKS HOW SHE IS FEELING. RR EVEN AND UNLABORED, PATIENT DENIES NAUSEA AT THIS TIME. NO REQUESTS, CALL LIGHT AND PERSONAL BELONGINGS IN REACH.
--- NOTE | 2024-10-20 12:46 | NUR ---
UR CLINICAL REVIEW: 2 MN FOR VERSALUS- PER CLAY WORKER MEETS INPT FOR DIVERTICULITIS WITH NEED FOR IV ABX MEDICARE INPT 10/20/24 @ 1134 ORDER MATCHES REG NO AUTH REQUIRED PER MEDICARE GUIDELINES DISCHARGE TO HOME WHEN STABLE
--- NOTE | 2024-10-20 12:52 | NUR ---
IMAGING ARRIVES TO TAKE PATIENT. PATIENT TRANSFERS INTO WHEELCHAIR WITH SBA ONLY. PATIENT STATES "NO PAIN, I JUST FEEL NUMB" AND IS SMILING. PATIENT CURRENTLY OFF THE FLOOR WITH IMAGING.
--- NOTE | 2024-10-20 13:35 | NUR ---
PATIENT BACK TO FLOOR FROM IMAGING. IMAGING ASSISTS PATIENT IN RETURNING TO BED. IV TO PATIENT'S L AC IS SLUGGISH TO FLUSH - CLAVE CHANGED, IV FLUSHING WNL WITH BRISK BLOOD RETURN ALSO NOTED. PATIENT REPORTS HER PAIN IS NOW A 1/10. SHE APPEARS RELAXED IN BED, IS SMILING AND LAUGHING WITH THIS RN. PATIENT DENIES NAUSEA AT THIS TIME, REPORTS SHE WILL TRY SOME SODIUM FREE BROTH - BORTH PROVIDED. NO REQUESTS, CALL LIGHT AND PERSONAL BELONGINGS IN REACH.
[2024-10-20] MEDS ORDERED: PANTOPRAZOLE SODIUM 40 MG TABEC PO SCH (13:52)
[2024-10-20 14:02] VITALS: BP 144/55
--- NOTE | 2024-10-20 14:04 | NUR ---
PATIENT IN BED AT THIS TIME. STOCK RANCH SUPERVISOR CHARTED VITALS AND I&O'S. CALL LIGHT WITHIN REACH, NO FURTHER NEEDS AT THIS TIME.
[2024-10-20 14:22] VITALS: BP 144/55
--- NOTE | 2024-10-20 15:16 | NUR ---
PATIENT'S SON, SCOTT, CALLED AND UPDATED ON PATIENT'S PLAN OF CARE PER PATIENT'S REQUEST.
[2024-10-20] MEDS ORDERED: PIPERACILLIN/TAZOBACTAM 4.5 GM in SODIUM CHLORIDE 0.9% 100 ML IV SCH (15:45)
--- NOTE | 2024-10-20 16:02 | NUR ---
IV ABX ADMINISTERED, PATIENT EDUCATED ON POSSIBLE SIDE EFFECTS AND ADVERSE REACTIONS, VERBALIZES UNDERSTANDING. PATIENT UPDATED ON TRANSFER STATUS AND PLAN, VERBALIZES UNDERSTANDING. NO REQUESTS, CALL LIGHT AND PERSONAL BELONGINGS IN REACH.
--- NOTE | 2024-10-20 17:17 | NUR ---
PRN PAIN MEDICATION ADMINISTERED PROPHYLACTICALLY FOR PATIENT'S IMPENDING BLS TRANSFER TO [facility]. PATIENT TRANSFERS TO [facility] WITH SBA, VOIDS, AND BACK INTO BED. PATIENT DENIES NAUSEA AT THIS TIME, DRINKS ABOUT HALF OF HER GRAPE JUICE AND RESTS IN BED. PATIENT HAS CELL PHONE IN HER GOWN POCKET AT THIS TIME, WAS PREVIOUSLY ON THE PHONE WITH HER SON, SCOTT, WHEN THIS RN AND MELIDA DE LA CRUZ ENTERED THE ROOM. PATIENT HAS NO REQUESTS, CALL LIGHT AND PERSONAL BELONGINGS IN REACH.
--- NOTE | 2024-10-21 07:47 | EKG ---
[facility] [address] [facility] [place] [address] Signed Sinus tachycardia Right bundle branch block Abnormal ECG When compared with ECG of 02-OCT-2022 15:28, QRS duration has decreased Confirmed by Az Tejeda MD ([id number]) on 10/21/2024 7:47:45 AM Electronically Signed By: AZ TEJEDA MD 10/21/24 0747 PATIENT NAME: BOWEN DE LA CRUZ Electrocardiogram DATE OF : 49 PHYSICIAN: AZ TEJEDA MD REPORT #: [id number] REPORT IS CONFIDENTIAL AND NOT TO BE RELEASED WITHOUT AUTHORIZATION
[2024-10-21] MEDS ORDERED: buPROPion HCL XL 300 MG TAB.XL.24H PO SCH (09:00)
[2024-10-21] MEDS ORDERED: ENOXAPARIN SODIUM 40 MG/0.4 ML SYR SUB-Q SCH (09:00)
== END 2024-10-20 17:30 | disposition short-term general hospital (02) | DRG 871 ==
LOC: ED 00:55 → MS 00:56
PROVIDERS: Internal Medicine; ADMIT Student in an Organized Health Care Education/Training Program; ATTEND Student in an Organized Health Care Education/Training Program
DX: A41.9 Sepsis, unspecified organism (principal); I81 Portal vein thrombosis; K75.0 Abscess of liver; K57.32 Diverticulitis of large intestine without perforation or abscess without bleeding; K35.80 Unspecified acute appendicitis; K80.00 Calculus of gallbladder with acute cholecystitis without obstruction; Z66 Do not resuscitate; G47.33 Obstructive sleep apnea (adult) (pediatric); E11.22 Type 2 diabetes mellitus with diabetic chronic kidney disease; K21.9 Gastro-esophageal reflux disease without esophagitis; I12.9 Hypertensive chronic kidney disease with stage 1 through stage 4 chronic kidney disease, or unspecified chronic kidney disease; N18.9 Chronic kidney disease, unspecified; F39 Unspecified mood [affective] disorder; Z87.891 Personal history of nicotine dependence; Z87.19 Personal history of other diseases of the digestive system; Z79.899 Other long term (current) drug therapy; Z85.01 Personal history of malignant neoplasm of esophagus
CPT/HCPCS: 36415; 71045; 74176; 74182; 74183; 80053; 81001; 83605; 83880; 84484; 85025; 85610; 85730; 93005; 93010; 96365; 96367; 96375; 96376; 97165; 99285-25; A9270; G0378; J0696; J0744; J1171; J1885; J2270; J2405; J2543; J7121

== ENCOUNTER 2024-12-06 14:02 | Inpatient (IN) | payer MEDICARE, OTHER ==
[~2024-12-06] VITALS: Ht 172.7 cm; Wt 45.3 kg
[~2024-12-06 14:02] MED LIST changes: +ALLOPURINOL100 MG PO; +FARXIGA5 MG PO; +KETOCONAZOLE15 GM TOP
[2024-12-06] MEDS ORDERED: AMLODIPINE BESYL5 MG PO (14:23)
[2024-12-06] MEDS ORDERED: ELIQUIS5 MG PO (14:24)
[2024-12-06] MEDS ORDERED: HYDROCODON-ACE1 EA10 PO (14:27)
[2024-12-06] MEDS ORDERED: TORSEMIDE10 MG PO (14:27)
[2024-12-06] MEDS ORDERED: KLOR-CON 1010 MEQ PO ×2 (14:29→14:30)
[2024-12-06] MEDS ORDERED: POTASSIUM40 MEQ/15 PO (14:30)
[2024-12-06] MEDS ORDERED: PANTOPRAZOLE SO40 MG PO (14:31)
[2024-12-06] MEDS ORDERED: ONDANSETRON ODT4 MG PO (14:32)
[2024-12-06] MEDS ORDERED: PAIN RELIEF325 MG PO (14:33)
[2024-12-06 14:42] LABS: BASOPHILS 0.4 % (0.1-1.2); EOSINOPHILS 0 % (0.7-5.8); LYMPHOCYTES 11.6 % (19.3-51.7); MCH 30.8 PG (25.6-32.2); MCHC 30.9 g/dL (32.2-35.5); MCV 99.6 fL (79.4-94.8); MONOCYTES 5.6 % (4.7-12.5); NEUTROPHILS 82.1 % (34.0-71.1); RBC 2.79 M/uL (3.93-5.22)
[2024-12-06 14:57] LABS: ALT (SGPT) 16.0 U/L (14-59); AST (SGOT) 23.0 U/L (15-37); GLOMERULAR FILTRATION RATE,EST 54.0 mL/min (>60); PROTEIN, TOTAL 6.3 g/dL (6.4-8.2); UREA NITROGEN 12.0 mg/dL (7-18)
[2024-12-06 15:15] LABS: BLOOD/HGB, URINE NEGATIVE (Negative); KETONE, URINE NEGATIVE (Negative); LEUK ESTERASE, URINE NEGATIVE (negative); NITRITE, URINE NEGATIVE (negative)
[2024-12-06 17:37] LABS: ALT (SGPT) 16.0 U/L (14-59); AST (SGOT) 22.0 U/L (15-37); GLOMERULAR FILTRATION RATE,EST 60.0 mL/min (>60); PROTEIN, TOTAL 6.2 g/dL (6.4-8.2); UREA NITROGEN 11.0 mg/dL (7-18)
[2024-12-06] MEDS ORDERED: SODIUM CHLORIDE 0.9% 1,000 ML IV PRN (18:30)
[2024-12-06] MEDS ORDERED: Calcium Gluconate in NS 1,000 MG/50 ML BAG IV ONE (18:30)
[2024-12-06] MEDS ORDERED: ALBUTEROL SULFATE 0.5% 2.5 MG/0.5 ML VIAL INH ONE (18:30)
[2024-12-06] MEDS ORDERED: SODIUM POLYSTYRENE SULFONATE 15 GM/60 ML UDC PO ONE (18:30)
[2024-12-06] MEDS ORDERED: IBLOOD GLUCOSE TEST STRIP 1 EA TEST XX PRN (19:45)
[2024-12-06] MEDS ORDERED: GLUCAGON,HUMAN RECOMBINANT 1 MG/ML VIAL SUB-Q PRN (19:45)
[2024-12-06] MEDS ORDERED: PROCHLORPERAZINE EDISYLATE 10 MG/2 ML VIAL IV PRN (19:45)
[2024-12-06] MEDS ORDERED: DEXTROSE 5% 1,000 ML IV PRN (19:45)
[2024-12-06] MEDS ORDERED: DEXTROSE 50% 50 ML SYR IV PRN ×2 (19:45)
[2024-12-06] MEDS ORDERED: ACETAMINOPHEN 325 MG TAB PO PRN (19:45)
[2024-12-06] MEDS ORDERED: MAGNESIUM SULFATE 2 GM/50 ML BAG IV ONE (20:00)
[2024-12-06 20:24] VITALS: BP 153/58
--- NOTE | 2024-12-06 20:40 | NUR ---
PT ARRIVED TO FLOOR VIA STRETCHER BY ER STAFF. REPORT RECEIVED FROM ART. PT ASSISTED OVER FROM STRETCHER TO BED WITH NURSING ASSISTANCE. PT AMBULATES WTIH UNSTEADY GAIT, FWW PROVIDED AND PATIENT DID BETTER. IV MAGNESIUM INFUSING AT THIS TIME. PT HAS SOME INCREASED WOB BUT SATS REMAIN STABLE AT 97% ON RA WITH EXERTION. PT REPORTS 8/10 PAIN TO ABDOMEN, JUST LEFT OF BELLY BUTTON AREA, REPORTS IT LIKE A SHARP PAIN, DENIES IT GETTING WORSE WITH PALPATION. COCCYX IS RED/BLANCHABLE AT THIS TIME, NO OPEN SORES. ELBOWS/KNEES/HEELS ALL CLEAR FROM REDNESS, SKIN BREAKDOWN. SCATTER BRUISES TO UPPER ARMS. US STARTED IV PRESENT TO R UPPER ARM. DENIES CHEST PAIN, TELEMETRY IN PLACE SHOWING SINUS TACH IN THE 100'S, PT DENIES CHEST PAIN/DISCOMFORT. BM TODAY WHEN ARRIVED TO FLOOR, WHICH IS LOOSE, URINATING CLEAR YELLOW URINE. 1+ EDEMA TO BLE, PULSES PALPALBE. PT STATES SOME NAUSEA BUT NOT BAD ENOUGH, DENIED WANTING ANY NAUSEA MEDS. CALL LIGHT WITHIN REACH AT THIS TIME. BED ALARM FOR SAFETY. PT ADVISED TO USE CALL LIGHT. CELL PHONE WITH PATIENT AT BEDSIDE. FRESH ICE WATER PROVIDED. ALL PT CARE NEEDS MET AT THIS TIME.
[2024-12-06] MEDS ORDERED: APIXABAN 5 MG TAB PO SCH (21:00)
[2024-12-06] MEDS ORDERED: HYDROCODONE/ACETA 5/325 TAB PO PRN (21:15)
[2024-12-06] MEDS ORDERED: hydroCHLOROthiazide 25 MG TAB PO ONE (21:15)
[2024-12-06 21:38] LABS: BASOPHILS 0.2 % (0.1-1.2); EOSINOPHILS 0 % (0.7-5.8); LYMPHOCYTES 18.9 % (19.3-51.7); MCH 30.4 PG (25.6-32.2); MCHC 30.2 g/dL (32.2-35.5); MCV 100.6 fL (79.4-94.8); MONOCYTES 4.7 % (4.7-12.5); NEUTROPHILS 76.0 % (34.0-71.1); RBC 3.09 M/uL (3.93-5.22)
[2024-12-06 21:42] LABS: PHOSPHORUS, INORGANIC 2.2 mg/dL (2.5-4.9)
[2024-12-06 21:47] LABS: GLOMERULAR FILTRATION RATE,EST 54.0 mL/min (>60); UREA NITROGEN 9.0 mg/dL (7-18)
--- NOTE | 2024-12-06 21:49 | NUR ---
PT PAIN 12/09, PRN MEDS GIVEN - SEE MAR. TOLERATED PILLS IN PUDDING, PT STATES SHE IS HAVING A HARDER TIME WITH PILLS, THIS HELPED HER SHE SAID. DID BREAK THE LARGER PAIN PILL IN 06/03 TO HELP SWALLOW EASIER. PT RESTING IN BED NOW, CALL LIGHT WITHIN REACH. BED ALARM ON FOR SAFETY. WILL ALLOW PATIENT TO REST AT THIS TIME.
[2024-12-06] MEDS ORDERED: ACIDOPHILUS1 EACH PO (22:03)
[2024-12-06] MEDS ORDERED: CARBOXYMETHYLCE15 ML OU (22:05)
[2024-12-06] MEDS ORDERED: DULCOLAX10 MG PR (22:06)
--- NOTE | 2024-12-06 22:10 | EKG ---
[facility] [place] [facility] [address] [facility] [place] [address] Signed Normal sinus rhythm Low voltage QRS Right bundle branch block Abnormal ECG When compared with ECG of 20-OCT-2024 01:23, Non-specific change in ST segment in Anterior leads T wave inversion no longer evident in Inferior leads QT has shortened Confirmed by Devi Berg MD () on 12/06/2024 10:10:29 PM Electronically Signed By: DEVI BERG MD 12/06/24 2210 PATIENT NAME: BOWEN DE LA CRUZ Electrocardiogram DATE OF : 49 PHYSICIAN: DEVI BERG MD REPORT #: [id number] REPORT IS CONFIDENTIAL AND NOT TO BE RELEASED WITHOUT AUTHORIZATION
[2024-12-06] MEDS ORDERED: MILK OF MA400 MG/5 M PO (22:13)
[2024-12-06] MEDS ORDERED: POTASSIUM20 MEQ/15 PO (22:17)
[2024-12-06 22:20] LABS: ABO O; ANTIBODY SCREEN NEGATIVE; RH POSITIVE
[2024-12-06] MEDS ORDERED: DEXTROSE 5% - LACTATED RINGERS 1,000 ML IV SCH (22:30)
--- NOTE | 2024-12-06 23:41 | NUR ---
THIS RN WENT INTO ROOM IV WAS OCCLUDED, FLUSHED AND RESTARTED. PT REQUESTING TO USE BATHROOM, DID WELL WITH SBA TO BSC. URINATED 250ML CLEAR YELLOW URINE. ASSISTED BACK TO BED, PT DENIES ANY NEEDS AT THIS TIME. CALL LIGHT WITHIN REACH.
[2024-12-06 23:44] VITALS: BP 139/65
[2024-12-07] VITALS (9 sets, daily range): BP systolic 132–156; BP diastolic 56–69
--- NOTE | 2024-12-07 00:31 | NUR ---
PT BED ALARM GOING OFF, PATIENT JUST REPOSITIONING. WARM BLANKET PROVIDED TO ABDOMEN TO HELP WITH PAIN, PT STATES IMPROVED TO 4/10 AT THIS TIME. DENIES ANY OTHER NEEDS, CALL LIGHT WITHIN REACH. BED ALARM IN PLACE FOR SAFETY.
--- NOTE | 2024-12-07 02:29 | NUR ---
MEDS GIVEN - SEE MAR. NG TUBE FLUSHED WITH WATER - 100ML. DOCUMENTED IN INTAKE. PT BOOSTED UP IN BED. DENIES ANY OTHER NEEDS AT THIS TIME. CALL LIGHT WITHIN REACH.
--- NOTE | 2024-12-07 04:13 | NUR ---
PT RESTING IN BED, LIGHT OFF. RESP EVEN/UNLABORED. CALL LIGHT WITHIN REACH, BED ALARM IN PLACE FOR SAFETY. PT ALLOWED TO SLEEP AT THIS TIME. NO PATIENT CARE NEEDS.
[2024-12-07 05:49] LABS: BASOPHILS 0.5 % (0.1-1.2); EOSINOPHILS 0 % (0.7-5.8); LYMPHOCYTES 20.5 % (19.3-51.7); MCH 30.2 PG (25.6-32.2); MCHC 31.3 g/dL (32.2-35.5); MCV 96.8 fL (79.4-94.8); MONOCYTES 6.3 % (4.7-12.5); NEUTROPHILS 72.4 % (34.0-71.1); RBC 2.48 M/uL (3.93-5.22)
[2024-12-07 06:05] LABS: ALT (SGPT) 11.0 U/L (14-59); AST (SGOT) 33.0 U/L (15-37); GLOMERULAR FILTRATION RATE,EST 65.0 mL/min (>60); PHOSPHORUS, INORGANIC 3.0 mg/dL (2.5-4.9); PROTEIN, TOTAL 5.6 g/dL (6.4-8.2); UREA NITROGEN 8.0 mg/dL (7-18)
[2024-12-07 06:27] LABS: BASOPHILS 0.3 % (0.1-1.2); EOSINOPHILS 0 % (0.7-5.8); LYMPHOCYTES 23.3 % (19.3-51.7); MCH 30.7 PG (25.6-32.2); MCHC 31.6 g/dL (32.2-35.5); MCV 97.2 fL (79.4-94.8); MONOCYTES 6.8 % (4.7-12.5); NEUTROPHILS 69.3 % (34.0-71.1); RBC 2.51 M/uL (3.93-5.22)
[2024-12-07 06:39] LABS: ALT (SGPT) 15.0 U/L (14-59); AST (SGOT) 18.0 U/L (15-37); GLOMERULAR FILTRATION RATE,EST 69.0 mL/min (>60); PHOSPHORUS, INORGANIC 2.8 mg/dL (2.5-4.9); PROTEIN, TOTAL 5.5 g/dL (6.4-8.2); UREA NITROGEN 7.0 mg/dL (7-18)
--- NOTE | 2024-12-07 06:42 | NUR ---
PT ASSISTED UP TO BATHROOM THIS MORNING, 1PA/FWW, STEADY, DENIES DIZZINESS, APPEARS MORE SPRY THIS MORNING. PT HAD LOOSE DARK STOOL, PT STATES THIS HAS BEEN HER NORMAL FOR THE LAST FEW WEEKS. OFFERED ORAL CARE, DENIES AND WOULD LIKE TO GO BACK TO SLEEP ALITTLE LONGER. IN BED, CALL LIGHT WITHING REACH, BED ALARM IN PLACE FOR SAFETY.
--- NOTE | 2024-12-07 07:13 | NUR ---
VERBAL REPORT RECEIVED FROM ANDRESSA CORDOVA. PT RESTS IN BED WITH EYES CLOSED, RESP EVEN AND UNLABORED.
[2024-12-07] MEDS ORDERED: FLEET ENEMA133 ML PR (09:37)
[2024-12-07] MEDS ORDERED: GLUCAGON EMERGEN1 M1 IM (09:39)
--- NOTE | 2024-12-07 09:40 | NUR ---
Unable to complete full ST evaluation; pt refused texture trials, including water. Pt c/o frequent urgency of bowel. Pt notes that it is very painful for her belly when she eats (mostly with foods, less so with liquids). Will attempt food trials another time.
--- NOTE | 2024-12-07 09:49 | NUR ---
MED REC COMPLETE
--- NOTE | 2024-12-07 09:50 | NUR ---
Spoke with Gabriella. She currently is living at [facility] as she is weak and has cancer of the esophagus. She plans on returning to [facility] and then will go to [facility] for further treatment. He son, Luca, lives in town and assists her. She states she has an appartment in town will eventually return there. Her neighbor takes her shopping. She uses [employer] to help with utilities and gets food stamps. Pt uses a cane, walker, and sometimes a wc at [facility] when she is weak. She denies needs to return to [facility].
--- NOTE | 2024-12-07 09:52 | NUR ---
PT RESTS IN BED, AWAKE, ABD PAIN 8/10, ALL QUADRANTS TENDER TO TOUCH. NORCO RECIEVED. CASE MANAGEMENT INTO SEE PT.
[2024-12-07 10:08] LABS: BASOPHILS 0.4 % (0.1-1.2); EOSINOPHILS 0 % (0.7-5.8); LYMPHOCYTES 19.6 % (19.3-51.7); MCH 30.2 PG (25.6-32.2); MCHC 30.9 g/dL (32.2-35.5); MCV 97.8 fL (79.4-94.8); MONOCYTES 7.3 % (4.7-12.5); NEUTROPHILS 72.6 % (34.0-71.1); RBC 2.68 M/uL (3.93-5.22)
[2024-12-07 10:17] LABS: GLOMERULAR FILTRATION RATE,EST 62.0 mL/min (>60); UREA NITROGEN 9.0 mg/dL (7-18)
--- NOTE | 2024-12-07 11:41 | NUR ---
UR CLINICAL REVIEW: 2 MN FOR VERSALUS-PER CUSTODIAL SERVICES MANAGER MEETS INPT FOR HYPOKALEMIA WITH NEED FOR TREATMENT AND SERIAL LABS MEDICARE INPT 12/06/24 @ 1012 ORDER MATCHES REG NO AUTH REQUIRED PER MEDICARE GUIDELINES RETURN TO SNF AT DC ADD 1-2 DAYS
--- NOTE | 2024-12-07 11:50 | NUR ---
PT SITS UP IN RECLINER, AWAKE AND ALERT, EATS LUNCH, CLEAR MIXED [place] ENSURE PROVIDED PER PT REQUEST.
[2024-12-07] MEDS ORDERED: PHARMACY RENAL DOSE ADJUSTMENT 1 DOSE MISC PO SCH (12:00)
--- NOTE | 2024-12-07 14:47 | NUR ---
PT DENIES ABDOMINAL PAIN AT THIS TIME. ABDOMEN REMAINS TENDER TO TOUCH. RLL AND RUL REMAIN DIM, PT SPO2 100%, NO SOB OR LABORED BREATHING. PT SITS UP IN RECLINER, CALL LIGHT IN REACH, NO REQUESTS AT THIS TIME.
--- NOTE | 2024-12-07 19:21 | NUR ---
RECEIVED REPORT FROM ANDRESSA MCKNIGHT. PT RESTING IN BED, DENIES ANY NEEDS OR CONCERNS. CALL LIGHT WITHIN REACH.
--- NOTE | 2024-12-07 21:43 | NUR ---
PT RESTING IN BED COMFORTABLY. VSS. DENIES PAIN. USES CALL LIGHT APPROPRIATELY. LSC BUT DIM T/O. HRR, TELEMETRY IN PLACE. BTA, REPORTS LBM TODAY. VOIDS WNL. BLE LORRAINE, 1+ EDEMA. JOSE MARIA IV W/ D5LR INFUSING @ 100MLS/HR. PT IS SBA FOR AMBULATION. CALL LIGHT WITHIN REACH.
--- NOTE | 2024-12-07 22:43 | NUR ---
PT AWAKE, PLAYING ON PHONE, REPORTS NOT FEELING TIRED YET. DENIES ANY OTHER NEEDS.
--- NOTE | 2024-12-07 23:29 | NUR ---
ASSISTED PT TO BR, CGA W/ FWW. VOID AND BM. DENIES ANY OTHER NEEDS.
[2024-12-08] VITALS (10 sets, daily range): BP systolic 138–170; BP diastolic 56–65
--- NOTE | 2024-12-08 00:37 | NUR ---
PT AWAKE, NO NEEDS AT THIS TIME. IVF INFUSING. CALL LIGHT WITHIN REACH.
--- NOTE | 2024-12-08 02:42 | NUR ---
PT ASLEEP, APPEARS COMFORTABLE.
--- NOTE | 2024-12-08 03:59 | NUR ---
ASSISTED TO BR, SBA W/ FWW. PT VOIDED AND HAD LOOSE BM. DENIES ANY OTHER NEEDS AT THIS TIME.
--- NOTE | 2024-12-08 05:09 | NUR ---
DX: HYPERKALEMIA. PT IS A [facility] RESIDENT. MOST RECENT K+ 4.7. TELEMETRY IN PLACE. IVF INFUSING. ONGOING LOOSE STOOLS. CGA W/ FWW TO BEATRICE.
[2024-12-08 05:30] LABS: BASOPHILS 0.5 % (0.1-1.2); EOSINOPHILS 3.0 % (0.7-5.8); LYMPHOCYTES 23.9 % (19.3-51.7); MCH 30.4 PG (25.6-32.2); MCHC 31.2 g/dL (32.2-35.5); MCV 97.5 fL (79.4-94.8); MONOCYTES 7.8 % (4.7-12.5); NEUTROPHILS 64.5 % (34.0-71.1); RBC 2.40 M/uL (3.93-5.22)
[2024-12-08 05:46] LABS: ALT (SGPT) 12.0 U/L (14-59); AST (SGOT) 22.0 U/L (15-37); GLOMERULAR FILTRATION RATE,EST 76.0 mL/min (>60); PROTEIN, TOTAL 5.1 g/dL (6.4-8.2); UREA NITROGEN 6.0 mg/dL (7-18)
--- NOTE | 2024-12-08 05:52 | NUR ---
PT AWAKE, REPORTS ONGOING DIARRHEA DISRUPTED SLEEP. ENC PT TO ASK MD ABOUT MEDS THIS AM.
--- NOTE | 2024-12-08 07:32 | NUR ---
RECEIVED REPORT FROM MARIANGEL MCLAIN. PATIENT RESTING IN BED AT THIS TIME, EYES CLOSED, DID NOT AWAKEN WHEN ENTERED ROOM. RESP EVEN/UNLABORED, IV FLUIDS INFUSING AT 100ML/HR. PT ALLOWED TO SLEEP AT THIS TIME. CALL LIGHT WITHING REACH.
--- NOTE | 2024-12-08 08:10 | NUR ---
PT SITTING UP ON EDGE OF BED, NO APPETITE THIS MORNING. SHE DID REQUEST A YOGURT THOUGH, WHICH WAS PROVIDED TO PATIENT. IV FLUIDS INFUSING AT 100ML/HR. MEDS GIVEN - SEE JUL. FRESH ICE WATER PROVIDED. PT DENIES ABDOMINAL PAIN TODAY, STATES HAS NOT HAD THE PAIN SINCE YESTERDAY, NO NAUSEA. 1+ EDEMA TO BLE, PULSES PALPABLE. CALL LIGHT WITHIN REACH. PT PLAYING GAME ON HER PHONE AT THIS TIME WITH TV IN BACKGROUND. PT DENIES ANY OTHER NEEDS AT THIS TIME. PT WAS ADVISED WE WILL COLLECT A STOOL SAMPLE TODAY TO CHECK FOR INFECTION, SHE SAYS THE DIARRHEA HAS BEEN ONGOING FOR ABOUT 2 WEEKS OR SO. PT VERBALIZES UNDERSTANDING AND AGREES.
--- NOTE | 2024-12-08 09:20 | NUR ---
Again discussed plan Gabriella. She states [facility] plans on discharging her soon. She will go home alone to her apartment. We discussed assistance through the state and applying for [place] Medicaid. Pt is agreeable and already received food stamps, assist through [employer] and has [employer] to pay the Medicare copays for a SNF. Pt is agreeable to discuss an eval with Giovanna from [facility]. I will assist her to call to start this process.
[2024-12-08 11:50] LABS: BASOPHILS 0.4 % (0.1-1.2); EOSINOPHILS 0 % (0.7-5.8); LYMPHOCYTES 27.8 % (19.3-51.7); MCH 30.3 PG (25.6-32.2); MCHC 31.5 g/dL (32.2-35.5); MCV 96.2 fL (79.4-94.8); MONOCYTES 6.0 % (4.7-12.5); NEUTROPHILS 65.7 % (34.0-71.1); RBC 2.90 M/uL (3.93-5.22)
--- NOTE | 2024-12-08 12:19 | NUR ---
PT ONLY INTOOK 10% OF LUNCH, OFFERED THE CLEAR ENSURE BUT PT STATES SHE IS JUST TOO FULL. IV FLUID RATE DECREASED TO 75ML/HR ORDERED. TELEMETRY WAS DC'D PER MD, WHICH WAS REMOVED. PT SITTING UP IN THE CHAIR AT THIS TIME. DENIES ANY OTHER NEEDS AT THIS TIME, CALL LIGHT WITHIN REACH.
--- NOTE | 2024-12-08 13:10 | NUR ---
PATIENT NEEDED ASSISTANCE TO THE RESTROOM, MASONRY TEACHER GOT STOOL SAMPLE AND SENT IT OFF. ASSISTED PATIENT BACK TO BED, CALL LIGHT WITH IN REACH AND NOTHING ELSE NEEDED AT THIS TIME.
[2024-12-08] MEDS ORDERED: AMLODIPINE BESYLATE 5 MG TAB PO SCH (13:30)
[2024-12-08] MEDS ORDERED: PANTOPRAZOLE SODIUM 40 MG TABEC PO SCH (13:30)
--- NOTE | 2024-12-08 13:46 | NUR ---
PATIENT IS HAVING DIETARY CONSULT. 5MG OF PO NORVASC GIVEN, PO PROTONIX GIVEN.
--- NOTE | 2024-12-08 14:15 | NUR ---
RECIEVED HAND OFF REPORT FROM ANDRESSA CARLOS.
--- NOTE | 2024-12-08 15:35 | NUR ---
PT AMBULATED TO BATHROOM. BACK IN BED, PHONE PLUGGED IN PER REQUEST. DENIES OTHER NEEDS. CALL LIGHT IN REACH
--- NOTE | 2024-12-08 16:31 | NUR ---
PT RESTING IN BED, EYES CLOSED, BREATHING EVEN AND UNLABORED. CALL LIGHT IN REACH.
--- NOTE | 2024-12-08 18:46 | NUR ---
HOURLY ROUNDING. PATIENT IS IN BED, SHE DID NOT EAT MUCH OF HER DINNER. I ENCOURAGED FLUIDS, ENSURE CLEAR THAT WAS SUGGESTED. PATIENT SAID SHE JUST NOW STARTING TO FEEL BETTER AND WAS ABLE TO EAT A BIT OF RICE. NO REQUEST FROM PATIENT CALL LIGHT HAS BEEN PLACED WITHIN REACH
--- NOTE | 2024-12-08 19:30 | NUR ---
REPORT RECEIVED FROM DAYSNAZANIN RN. PATIENT SITTING ON EDGE OF BED, SCROLLING ON PHONE. IVF INFUSING WITHOUT DIFFICULTY. SHE DENIES ANY NEEDS, CALL LIGHT IN REACH
--- NOTE | 2024-12-08 20:38 | NUR ---
PATIENT SITTING UPRIGHT IN BED, ASSESSMENT COMPLETE. VS OBTAINED AND RECORDED. INTAKE DOCUMENTED. PATIENT DENIES ANY PAIN, IVF INFUSING WITHOUT DIFFICULTY. SCHEDULED MEDICATIONS ADMINISTERED PER ORDER. CUP OF ICE PROVIDED FOR DRINK PER REQUEST. SHE DENIES OTHER NEEDS, CALL LIGHT IN REACH
[2024-12-08] MEDS ORDERED: buPROPion HCL XL 300 MG TAB.XL.24H PO SCH (21:00)
--- NOTE | 2024-12-08 21:15 | NUR ---
BATHROOM CALL LIGHT ANSWERED, pt ASSISTED BACK TO BED SBA WITH FWW. STEADY ON FEET. URINE MIXED WITH DIARRHEA IN HAT. PERSONAL BELONGINGS AND CALL LIGHT IN REACH, PRIMARY RN NOW IN ROOM WITH pt.
[2024-12-09] VITALS (10 sets, daily range): BP systolic 135–179; BP diastolic 57–95
--- NOTE | 2024-12-09 00:46 | NUR ---
ROUNDED ON PATIENT, PATIENT RESTING WITH EYES CLOSED ON LEFT SIDE. RESPIRATIONS EVEN AND UNLABORED. IVF CONTINUING TO INFUSE PER ORDER. NO NEEDS IDENTIFIED, CALL LIGHT IN REACH, BED ALARM ON.
--- NOTE | 2024-12-09 01:00 | NUR ---
IN ROOM IN RESPONSE TO ALARMING IV PUMP, PATIENT SIDE OCCLUSION. IV SITE FLUSHED. NO SIGNS OF INFILTRATION. PATIENT DENIES PAIN. IVF CONTINUING TO INFUSE WITHOUT DIFFICULTY. NO NEEDS, CALL LIGHT IN REACH
--- NOTE | 2024-12-09 03:00 | NUR ---
CALL LIGHT ANSWERED, PATIENT ASSISTED UP TO RESTROOM USING FWW AND MINIMAL SBA. SHE USES THE CALL LIGHT APPROPRIATELY. BACK TO BED WITHOUT DIFFICULTY. NO OTHER NEEDS, BED ALARM ON, CALL LIGHT IN REACH
--- NOTE | 2024-12-09 05:25 | NUR ---
VS OBTAINED AND RECORDED. NEW IVF [facility], INTAKE AND OUTPUT DOCUMENTED. PATIENT IS AWAKE AND ALERT, WATCHING TV. SHE DENIES ANY OTHER NEEDS, CALL LIGHT IN REACH
[2024-12-09 05:32] LABS: BASOPHILS 0.3 % (0.1-1.2); EOSINOPHILS 0 % (0.7-5.8); LYMPHOCYTES 33.8 % (19.3-51.7); MCH 30.6 PG (25.6-32.2); MCHC 31.1 g/dL (32.2-35.5); MCV 98.3 fL (79.4-94.8); MONOCYTES 8.2 % (4.7-12.5); NEUTROPHILS 57.5 % (34.0-71.1); RBC 2.42 M/uL (3.93-5.22)
[2024-12-09 05:50] LABS: ALT (SGPT) 13.0 U/L (14-59); AST (SGOT) 24.0 U/L (15-37); GLOMERULAR FILTRATION RATE,EST 86.0 mL/min (>60); PROTEIN, TOTAL 5.0 g/dL (6.4-8.2); UREA NITROGEN 5.0 mg/dL (7-18)
--- NOTE | 2024-12-09 07:10 | NUR ---
RECIEVED REPORT FROM ANDRESSA MANCIA. PT LYING IN BED AWAKE, STATES NO CURRENT NEEDS. CALL LIGHT WITHIN REACH.
--- NOTE | 2024-12-09 08:10 | NUR ---
PATIENT IN CHAIR AT THIS TIME. HOST COORDINATOR CHARTED HOURLY ROUNDS. HOST COORDINATOR ASSISTED PATIENT TO BATHROOM AND THEN BACK TO CHAIR. HOST COORDINATOR CHANGED PATIENTS LINENS. CALL LIGHT WITHIN REACH, NO FURTHER NEEDS AT THIS TIME.
--- NOTE | 2024-12-09 09:57 | NUR ---
WBT NOTIFIED OF PATIENT DISCHARGE. PATIENT DISCHARGE ORDERS GIVEN TO MD.
[2024-12-09 10:07] LABS: BASOPHILS 0.3 % (0.1-1.2); EOSINOPHILS 0 % (0.7-5.8); LYMPHOCYTES 29.6 % (19.3-51.7); MCH 29.8 PG (25.6-32.2); MCHC 30.3 g/dL (32.2-35.5); MCV 98.5 fL (79.4-94.8); MONOCYTES 8.1 % (4.7-12.5); NEUTROPHILS 61.7 % (34.0-71.1); RBC 2.65 M/uL (3.93-5.22)
--- NOTE | 2024-12-09 10:20 | NUR ---
PATIENT IN BED AT THIS TIME. SAFETY LAMP KEEPER CHARTED VITALS AND I&O'S. SAFETY LAMP KEEPER OFFERED PATIENT SHOWER, PATIENT REFUSED. CALL LIGHT WITHIN REACH, NO FURTHER NEEDS AT THIS TIME.
--- NOTE | 2024-12-09 10:25 | NUR ---
DR. BERG UPDATED ON MOST RECENT BLOOD PRESSURE, NO NEW ORDERS AT THIS TIME.
--- NOTE | 2024-12-09 11:54 | NUR ---
PT NOT AVAILABLE FOR VISIT. PROVIDED PRAYER.
--- NOTE | 2024-12-09 12:12 | NUR ---
ORDERS FAXED TO [facility].
[2024-12-09] MEDS ORDERED: HYDROCODON-ACE1 EA10 PO (12:24)
--- NOTE | 2024-12-09 13:00 | NUR ---
DC PACKET AND EDUCATION GIVEN TO PT, YARA DC PACKET GIVEN TO PT. PT UP TO RESTROOM, BACK TO BED AFTER RESTROOM. PT BEGINS TO GRAB ABDOMINAL AREA AND STATES SHE IS HAVING 10/10 ABDOMINAL PAIN "SUDDENLY", REQUESTS PRN PAIN MEDICATION, GIVEN. DR. BERG UPDATED ON PT STATUS, MD TO BEDSIDE.
--- NOTE | 2024-12-09 13:58 | NUR ---
PATIENT IN BED AT THIS TME. DIRECTOR OF COLLECTIONS CHARTED VITALS AND I&O'S. CALL LIGHT WITHIN REACH, PATIENT HAVING PAIN, ANDRESSA JACKSON NOTIFIED. NO FURTHER NEEDS.
[2024-12-09 15:17] LABS: BASOPHILS 0.3 % (0.1-1.2); EOSINOPHILS 0 % (0.7-5.8); LYMPHOCYTES 13.0 % (19.3-51.7); MCH 30.0 PG (25.6-32.2); MCHC 30.9 g/dL (32.2-35.5); MCV 97.2 fL (79.4-94.8); MONOCYTES 6.3 % (4.7-12.5); NEUTROPHILS 80.0 % (34.0-71.1); RBC 2.83 M/uL (3.93-5.22)
[2024-12-09 15:33] LABS: ALT (SGPT) 14.0 U/L (14-59); AST (SGOT) 32.0 U/L (15-37); GLOMERULAR FILTRATION RATE,EST 65.0 mL/min (>60); PROTEIN, TOTAL 5.8 g/dL (6.4-8.2); UREA NITROGEN 5.0 mg/dL (7-18)
[2024-12-09] MEDS ORDERED: LACTATED RINGER'S 1,000 ML IV ONE (16:00)
--- NOTE | 2024-12-09 16:30 | NUR ---
THIS RN IS CALLED TO GO TO CT ROOM D/T PT IV NOT FLUSHING FAST ENOUGH FOR THE ORDER. THIS RN ATTEMPTS NEW IV X2, ED RN ATTEMPTS X1 WITH VEIN FINDER, ANDRESSA PEREZ STARTS ULTRASOUND IV IN LEFT UPPER ARM. PT TO CT, ULTRASOUND IV POSITIONAL, TAPED DOWN TO ALLOW IMAGING. PT WITH IMAGING STAFF.
--- NOTE | 2024-12-09 18:06 | NUR ---
PT RESTING IN BED WATCHING TV. LR BOLUS INFUSING ORDERED. PT STATES PAIN IS NOW 4/10 AND TOLERABLE AT THIS TIME. CALL LIGHT WITHIN REACH.
--- NOTE | 2024-12-09 18:06 | NUR ---
PATIENT IN BED AT THIS TIME. RN OTOLARYNGOLOGY CHARTED VITALS AND I&O'S. CALL LIGHT WITHIN REACH, NO FURTHER NEEDS.
--- NOTE | 2024-12-09 19:20 | NUR ---
shift report received from dayshift rosemary castrejon, pt awake and resting in bed. on ra, rr even and unlabored. warm blanket provided per pt request. iv sites x2 wnl, iv fluids infusing as directed to lue via us guided iv. rue iv saline locked. pt denies additional needs or concerns, reprots feeling "tired". call light and personal belongins in reach. board updated.
--- NOTE | 2024-12-09 19:39 | NUR ---
call received from cal in lab regarding critical lab- lactic result of 2.1, improved from 2.9. dr yanez at rn station and made aware. to put in new orders for am repeat lactic and increased fluid rate.
--- NOTE | 2024-12-09 19:53 | NUR ---
IV FLUIDS TITRATED PER MD ORDERS AND INFUSING AT NEW ORDERED RATE OF 125MLS/HR, IV SITE REMAISN WNL. pt RESTING QUIETLY IN BED WITH EYES CLOSED, ON RA. RR EVEN AND UNLABORED. pt AWOKE BRIEFLY WHILE ASSESSING IV, NO NEEDS OR CONCRNS VERBALIZED. CALL LIGHT IN REACH.
--- NOTE | 2024-12-09 20:30 | NUR ---
BATHROOM CALL LIGHT ANSWERED. PT ASSISTED BACK TO BED. VITALS AND I&O OBTAINED. RN NOTIFED OF IV PUMP ALARM. PT STATES NO FURTHER NEEDS AT THIS TIME. CALL LIGHT WITHIN REACH.
--- NOTE | 2024-12-09 21:10 | NUR ---
assessment complete, plating inspector recently assisted pt back from bathroom to bed.pt eager for bed, but awakens and follows commands, fully oriented at this time. pupils round, equal, and reactive to light. lung sounds clear, somewhat diminished in lower lobes. pt denies sob, rr even and unlabored. pills taken w/o issue, see emar. iv sites x2 flushes easily and wnl, fluids continue to infuse via us guided lue iv site, very positonal. site redressed with assistance from andres scott, will monitor. bowel tones active, no nausea reported. trace to +1 edema noted to bilateral ankles, socks manipulated and elevated with pillow in bed. strong bilateral pedal pulses noted, feet somewhat cool. pt denies neuropathy. fresh ice water provided, call light and personal belongings in reach.
--- NOTE | 2024-12-09 22:19 | NUR ---
ROUNDED ON pt, pt LAYING SOMEHAT ON HER LEFT SIDE AND HAS EYES CLOSED. RR EVEN AND UNLABORED. NO DISTRESS OR OUTWARD S/SX OF PAIN OR DISCOMFORT NOTED. pt LEFT UNDISTURBED AND ALLOWED TO CONTINUE TO REST, CALL LIGHT AND PERSONAL BELONGINGS IN REACH.
--- NOTE | 2024-12-09 23:01 | NUR ---
BP RECHECKED RECENTLY BY XIANG MALDONADO, IMPROVED. NEW BAG IV FLUIDS HUNG AND INFUSING DIRECTED, IV SITE WNL. IV SITE REMAINS POSITIONAL, BUT IMPROVED AFTER COBAN USED TO KEEP TENSION BELOW IV SITE, WILL CONTINUE TO MONITOR. WARM BLANKET PROVIDED, pt DENIES ADDITIONAL NEEDS OR CONCERNS. CALL LIGHT IN REACH.
--- NOTE | 2024-12-10 00:10 | NUR ---
pt UP TO GO TO THE BATHROOM, SBA WITH FWW AND BACK IN BED. IV OCCLUDED TO LEFT UPPER ARM, UNABLE TO FLUSH SITE/OBTAIN BLOOD RETURN AFTER VARIOUS ATTEMPTS WITH POSITION CHANGES TO pt ARM. pt REPORTS PAIN TO IV SITE. SITE APPEARS SLIGHTLY EDEMATOUS COMPARED TO SAME LOCATION ON RIGHT AC AREA, CATHETER TIP INTACT, GAUZE AND COBAN IN PLACE. ADHESIVE REMOVER PAD UTILIZED WITH DC OF DRESSING. IV FLUIDS RESUMED TO RUE IV SITE, WNL AT THIS TIME. pt DENIES PAIN, WILL CONITNUE TO MONIOTR, REMAINS POSITIONAL. NO FURTHER NEEDS, CALL LIGHT IN REACH. [employer] PL[employer]ATION MANAGER CHRISTIANE UPDATED AND AWARE.
--- NOTE | 2024-12-10 00:45 | NUR ---
IV SITE TO RUE REMAINS WNL, FLUIDS INFUSING DIRECTED. pt DENIES NEEDS OR CONCERNS. CALL LIGHT IN REACH.
--- NOTE | 2024-12-10 01:50 | NUR ---
iv to right upper arm infiltrated, clubhouse attendant tyler also in pt room and aware. us trained rn adarsh made aware and to attempt new us guided iv. pt updated on poc, denies additional needs or concerns, call light in reach.
--- NOTE | 2024-12-10 02:10 | NUR ---
KEVIN CRISOSTOMO IN ROOM TO ATTEMPT TO PLACE NEW US GUIDED IV. RUE ELEVATED IN BED WITH PILLOWS.
--- NOTE | 2024-12-10 03:09 | NUR ---
ATTEMPTED USIV X2 WITHOUT SUCCESS. PT TOLERATED WELL. PRIMARY RN NOTIFIED.
--- NOTE | 2024-12-10 03:10 | NUR ---
warehouse supervisor tyler updated that pt still doesn't have iv acccess. rikye to discuss with another nurse in the er who is also trained in us guided iv. pt resting quietly in bed, on ra. rr even and unlabored. rue remains elevated in bed with pillows. call light in reach.
--- NOTE | 2024-12-10 04:12 | NUR ---
[facility] RN SARI IN pt ROOM TO ATTEMPT TO PLACE US GUIDED IV. pt UP TO VOID SBA WITH FWW, STEADY OF FEET, BACK IN BED-VOIDED 400MLS. CALL LIGHT IN REACH.
--- NOTE | 2024-12-10 04:40 | NUR ---
SARI CRISOSTOMO ABLE TO PLACE US GUIDED IV TO LEFT ARM, 20G 1 3/4TH INCH LENGTH. IV FLUIDS RESUMED, WARM BLANKET PROVIDED. CALL LIGHT IN REACH. FOCUSED ASSESSMENT COMPLETE, NO ACUTE CHANGES.
--- NOTE | 2024-12-10 05:02 | NUR ---
SWELLING FROM INFILTRATION TO RIGHT UPPER ARM IMPROVING, REMAINS ELEVATED. NEW IV REMAINS WNL, FLUIDS CONTINUE TO INFUSE DIRECTED, CALL LIGHT IN REACH.
[2024-12-10 05:19] VITALS: BP 147/59
--- NOTE | 2024-12-10 05:19 | NUR ---
ACETYLENE TORCH BURNER OBTAINED VITALS AND I&O. PT STATES NO NEEDS AT THIS TIME. CALL LIGHT WITHIN REACH.
--- NOTE | 2024-12-10 06:30 | NUR ---
x2 lab staff unable to collect am labs. discussed with tyler camposhalfway house counselor. this rn and rosemary soctt in room to collect am labs from us guided iv, site flushed with ns and paused for 2+ minutes before lab draw and blood given to claudeami from lab to place in tubes. iv fluids resumed and site wnl.tourniquet used for lab draw then removed. pt denies additional needs or concerns, call light in reach.
[2024-12-10 06:51] VITALS: BP 147/59
[2024-12-10 06:55] LABS: ALT (SGPT) 13.0 U/L (14-59); AST (SGOT) 24.0 U/L (15-37); GLOMERULAR FILTRATION RATE,EST 79.0 mL/min (>60); PROTEIN, TOTAL 5.2 g/dL (6.4-8.2); UREA NITROGEN 4.0 mg/dL (7-18)
[2024-12-10 06:59] LABS: BASOPHILS 0.3 % (0.1-1.2); EOSINOPHILS 0 % (0.7-5.8); LYMPHOCYTES 18.0 % (19.3-51.7); MCH 30.7 PG (25.6-32.2); MCHC 31.4 g/dL (32.2-35.5); MCV 97.7 fL (79.4-94.8); MONOCYTES 6.9 % (4.7-12.5); NEUTROPHILS 74.5 % (34.0-71.1); RBC 2.64 M/uL (3.93-5.22)
--- NOTE | 2024-12-10 07:18 | NUR ---
dr yanez updated on loss of us guided iv sites x2 and pt w/o iv fluids for approx 2.5 hrs. also updated on am lactic result of 1.9. no new orders received at this time.
--- NOTE | 2024-12-10 07:20 | NUR ---
RECEIVED REPORT FROM NIGHT RN. PT RESTING IN BED WITH EYES CLOSED, IV FLUIDS INFUSING. NO NEEDS AT THIS TIME. ALLOWED TO REST.
[2024-12-10 08:09] VITALS: BP 138/83
[2024-12-10 08:11] VITALS: BP 138/83
[2024-12-10] MEDS ORDERED: MAGNESIUM SULFATE 2 GM/50 ML BAG IV ONE (09:00)
--- NOTE | 2024-12-10 09:31 | NUR ---
PT TOLERATED MEDS THIS MORNING IN PUDDING - SEE MAR. PT ASSISTED WITH FWW TO BATHROOM, SOFT/SEMI-FORMED STOOL, URINATING WELL. BUTTOCK RED/BLANCHABLE, ASSISTED BACK TO CHAIR FOR BREAKFAST. PT REFUSED THE MEAL ON TRAY, PROVIDED A HOOVER CLEAR ENSURE, YOGURT AND EATING HER BANANAS. IV MG INFUSING AT THIS TIME. SOME BRUISING TO HER IV SITE BUT IT IS PATENT, WILL MONITOR CLOSELY. PT REPORTS PAIN TO ABDOMEN DULL THIS MORNING, NOT STABBING. PRESENT IN THE ROOM WHEN MD ROUNDING. ALL PT CARE NEEDS MET, WARM BLANKET AND FRESH ICE WATER PROVIDED. UP IN CHAIR WITH CALL LIGHT WITHIN REACH.
--- NOTE | 2024-12-10 10:07 | NUR ---
TALKED WITH [facility]. FAXED UPDATED D/C SUMMARY. TAXI TO BE HERE IN 10 MINS TO GET PATIENT. NO FUTHER CM NEEDS.
[2024-12-10 10:19] VITALS: BP 165/76
--- NOTE | 2024-12-10 10:28 | NUR ---
REPORT CALLED TO HELGA AT [facility], PT JUST ARRIVED WHEN REPORT BEING CALLED. NO CONCERNED, THEY WILL ASSURE THEY GET THE INFORMATION FOR DR. WHALEN FOLLOW-UP THAT IS TO BE SCHEDULED FRIDAY.
== END 2024-12-10 10:12 | DRG 441 ==
LOC: ED 14:02 → MS 19:54
PROVIDERS: Emergency Medicine; ADMIT Family Medicine; ATTEND Family Medicine
DX: I81 Portal vein thrombosis (principal); E43 Unspecified severe protein-calorie malnutrition; K75.0 Abscess of liver; I74.8 Embolism and thrombosis of other arteries; C15.9 Malignant neoplasm of esophagus, unspecified; Z68.1 Body mass index [BMI] 19.9 or less, adult; K55.1 Chronic vascular disorders of intestine; E87.5 Hyperkalemia; E11.22 Type 2 diabetes mellitus with diabetic chronic kidney disease; K21.9 Gastro-esophageal reflux disease without esophagitis; Z66 Do not resuscitate; I12.9 Hypertensive chronic kidney disease with stage 1 through stage 4 chronic kidney disease, or unspecified chronic kidney disease; N18.30 Chronic kidney disease, stage 3 unspecified; F32.A Depression, unspecified; F17.210 Nicotine dependence, cigarettes, uncomplicated; J44.9 Chronic obstructive pulmonary disease, unspecified; R54 Age-related physical debility; M10.9 Gout, unspecified; E11.622 Type 2 diabetes mellitus with other skin ulcer; L89.159 Pressure ulcer of sacral region, unspecified stage; Z79.899 Other long term (current) drug therapy; Z79.01 Long term (current) use of anticoagulants; Z79.891 Long term (current) use of opiate analgesic; Z87.19 Personal history of other diseases of the digestive system; I45.10 Unspecified right bundle-branch block; G47.30 Sleep apnea, unspecified; D63.1 Anemia in chronic kidney disease; E83.42 Hypomagnesemia
CPT/HCPCS: 36415; 36592; 74018; 74174; 74177; 80048; 80053; 81003; 83605; 83690; 83735; 84100; 85025; 86850; 86900; 86901; 93005; 93010; 94644; 97161; 97165; 97530; 97535; A9270; J2405; J3475; J7030; J7121; Q9967